=== PATIENT | female | born 1930 | race Caucasian/White ===

== ENCOUNTER 2016-08-18 14:02 | Emergency (ER) | payer OTHER ==
[~2016-08-18] VITALS: Ht 165.1 cm; Wt 76.1 kg
[~2016-08-18 14:02] MED LIST: ASPI1TAB48 PO; CHOL1CAP57 PO; FURO-85 PO; LISI-792 PO; POTA-74 PO; SIMV20TA5 PO; TPRSR/25 PO; WARF-285 PO
[2016-08-18 14:07] VITALS: BP 151/89; PULSE 90; TEMP 36.4; O2SAT 95; Ht 165.1 cm; Wt 76.1 kg
[2016-08-18] MEDS ORDERED: DIPH-437 PO (22:28)
[2016-08-18] MEDS ORDERED: PRLSR20 PO (22:28)
[2016-08-18] MEDS ORDERED: VITA10004 PO (22:28)
[2016-08-18] MEDS ORDERED: DOCU-94 PO (22:28)
== END 2016-08-18 17:00 | disposition left against medical advice (07) ==
LOC: C.EDB 14:03
DX: K59.00 Constipation, unspecified (principal)

== ENCOUNTER 2016-08-18 21:56 | Emergency (ER) | payer OTHER ==
[~2016-08-18] VITALS: Ht 165.1 cm; Wt 76.6 kg
[2016-08-18 22:01] VITALS: Ht 165.1 cm; Wt 76.6 kg
[2016-08-18] MEDS ORDERED: SODIUM CHLORIDE 0.9% 250ML 250 ML IV STA (22:26)
[2016-08-18] MEDS ORDERED: DOCU-94 PO (22:28)
[2016-08-18] MEDS ORDERED: DIPH-437 PO (22:28)
[2016-08-18] MEDS ORDERED: PRLSR20 PO (22:28)
[2016-08-18] MEDS ORDERED: VITA10004 PO (22:28)
[2016-08-18 22:29] VITALS: O2SAT 99
[2016-08-18] MEDS ORDERED: OPTIRAY 320 IV PRN (22:45)
[2016-08-18 22:49] LABS: COMPLETE YES; EOS % 1.1 %; HEMATOCRIT 37.2 % (37-47); IG% 0.2 %; LYMPH % 43.1 %; LYMPH ABS # 2.36 K/uL (1.2-3.4); MEAN CELL VOLUME 86.3 fL (80-100); MEAN CORPUSCULAR HEMOGLOBIN 29.5 pg (25-34); MEAN CORPUSCULAR HGB CONC 34.1 g/dl (32-36); MEAN PLATELET VOLUME 8.5 fL (7.4-10.4); MONO % 10.6 %; PLATELET COUNT 118 K/uL (130-400); RED BLOOD COUNT 4.31 M/uL (4.2-5.4); WHITE BLOOD COUNT 5.48 K/uL (4.8-10.8)
[2016-08-18 23:05] LABS: ALT/SGPT 24 U/L (12-78); AST/SGOT 17 U/L (15-37); BLOOD UREA NITROGEN 17 mg/dl (7-18); BUN/CREATININE RATIO 27.1 (10-20); CALCIUM 9.5 mg/dl (8.5-10.1); CARBON DIOXIDE 31 mmol/L (21-32); CHLORIDE 102 mmol/L (98-107); CREATININE 0.62 mg/dl (0.60-1.20); GLUCOSE 122 mg/dl (70-99); POTASSIUM 3.6 mmol/L (3.5-5.1); SODIUM 140 mmol/L (136-145)
[2016-08-18 23:09] LABS: ALKALINE PHOSPHATASE 94 U/L (45-117)
--- NOTE | 2016-08-18 23:18 | EMERGENCY ROOM VISIT NOTE ---
ED Visit Note First contact with patient: 22:15 I have seen and examined this patient with Trang Ansari and generally agree with the treatment plan as discussed. Problem List Medical Problems: (1) Atrial fibrillation Status: Chronic (2) Carcinoma of breast Status: Chronic (3) Deep venous thrombosis Status: Chronic (4) Hyperlipidemia Status: Chronic (5) Pulmonary embolism Status: Chronic (6) Varicose veins Status: Chronic Current/Historical Medications Scheduled Acetaminophen/Diphenhydramine (Tylenol Pm), 1 TAB PO HS Aspirin (Aspirin Low Dose), 81 MG PO DAILY Cholecalciferol (Vitamin D3), 1,000 INTER.UNIT PO DAILY Docusate Sodium (Colace), 1 CAP PO BID Lisinopril (Zestril), 20 MG PO DAILY Metoprolol Succinate (Metoprolol Succinate ER), 12.5 MG PO DAILY Simvastatin (Zocor), 20 MG PO HS Vitamin E (Vitamin E), 1,000 UNITS PO DAILY Warfarin Sodium (Warfarin Sodium), 3 MG PO DAILY Scheduled PRN Omeprazole (Prilosec), 20 MG PO DAILY PRN for Heartburn Allergies Coded Allergies: Amoxicillin (Verified Allergy, Intermediate, RASH; PURPLE SKIN, 08/18/16) Cephalexin (Verified Allergy, Mild, rash, 08/18/16) Amiodarone (Verified Allergy, Unknown, RASH, 08/18/16) Vital Signs Date Time Temp Pulse Resp B/P Pulse Ox O2 Delivery O2 Flow Rate FiO2 08/18/16 23:00 81 18 158/89 08/18/16 22:29 99 Room Air 08/18/16 22:29 99 Room Air 08/18/16 22:01 36.6 81 18 152/88 99 Room Air Laboratory Results 08/18/16 22:39 Red Blood Count 4.31, Mean Corpuscular Volume 86.3, Mean Corpuscular Hemoglobin 29.5, Mean Corpuscular Hemoglobin Concent 34.1, Mean Platelet Volume 8.5, Neutrophils (%) (Auto) 45.0, Lymphocytes (%) (Auto) 43.1, Monocytes (%) (Auto) 10.6, Eosinophils (%) (Auto) 1.1, Basophils (%) (Auto) 0.0, Neutrophils # (Auto ) 2.47, Lymphocytes # (Auto) 2.36, Monocytes # (Auto) 0.58, Eosinophils # (Auto ) 0.06, Basophils # (Auto) 0.00 08/18/16 22:39 Test 08/18/16 22:39 White Blood Count 5.48 K/uL (4.8-10.8) Red Blood Count 4.31 M/uL (4.2-5.4) Hemoglobin 12.7 g/dL (12.0-16.0) Hematocrit 37.2 % (37-47) Mean Corpuscular Volume 86.3 fL (80-100) Mean Corpuscular Hemoglobin 29.5 pg (25-34) Mean Corpuscular Hemoglobin Concent 34.1 g/dl (32-36) Platelet Count 118 K/uL (130-400) Mean Platelet Volume 8.5 fL (7.4-10.4) Neutrophils (%) (Auto) 45.0 % Lymphocytes (%) (Auto) 43.1 % Monocytes (%) (Auto) 10.6 % Eosinophils (%) (Auto) 1.1 % Basophils (%) (Auto) 0.0 % Neutrophils # (Auto) 2.47 K/uL (1.4-6.5) Lymphocytes # (Auto) 2.36 K/uL (1.2-3.4) Monocytes # (Auto) 0.58 K/uL (0.11-0.59) Eosinophils # (Auto) 0.06 K/uL (0-0.5) Basophils # (Auto) 0.00 K/uL (0-0.2) RDW Standard Deviation 51.1 fL (36.4-46.3) RDW Coefficient of Variation 16.0 % (11.5-14.5) Immature Granulocyte % (Auto) 0.2 % Immature Granulocyte # (Auto) 0.01 K/uL (0.00-0.02) Anion Gap 7.0 mmol/L (3-11) Est Creatinine Clear Calc Drug Dose 70.4 ml/min Estimated GFR () 96.6 Estimated GFR (Non- 83.4 BUN/Creatinine Ratio 27.1 (10-20) Calcium Level 9.5 mg/dl (8.5-10.1) Total Bilirubin 1.4 mg/dl (0.2-1) Direct Bilirubin 0.3 mg/dl (0-0.2) Aspartate Amino Transf (AST/SGOT) 17 U/L (15-37) Alanine Aminotransferase (ALT/SGPT) 24 U/L (12-78) Alkaline Phosphatase 94 U/L (45-117) Troponin I < 0.015 ng/ml (0-0.045) Total Protein 8.1 gm/dl (6.4-8.2) Albumin 3.3 gm/dl (3.4-5.0) Medications Administered Medications (Trade) Dose Ordered Sig/Sade Route Start Time Stop Time Status Last Admin Dose Admin Sodium Chloride (Nss 250ml) 250 ml @ 999 mls/hr Q16M STAT IV 08/18/16 22:26 08/18/16 22:41 DC 08/18/16 23:01 999 MLS/HR Departure Information Referrals Any Gregg, C.R.N.P (PCP) Patient Instructions My [facility]
[2016-08-18 23:43] LABS: PARTIAL THROMBOPLASTIN RATIO 1.6; PROTHROMBIN TIME (PATIENT) 22.3 SECONDS (9.0-12.0)
[2016-08-19] MEDS ORDERED: SOAP SUDS ENEMA PR STA (00:13)
[2016-08-19] MEDS ORDERED: MAGNESIUM CITRATE 296 ML/BTL PO ONE (00:15)
--- NOTE | 2016-08-19 00:53 | EMERGENCY ROOM VISIT NOTE ---
History First contact with patient: 22:15 Chief Complaint: CONSTIPATION Stated Complaint: CONSTIPATION Nursing Triage Summary: "we was here earlier, left before being seen by a doctor, we were tired waiting. we were here two hours. went home and tried the following: drank water,prune juice, MOM, hot water. went to [facility], unable to purchase a fleets enema; [facility] doesn't have them so bought liquid glycerin enema- on the box it said to go to the er if no results in an hour, so we came back" states last "real bm was sunday" passing liquid after enema this evening. used washroom after arrival to er, reports "just water comes out" History of Present Illness The patient is a 85 year old female who presents to the Emergency Room with complaints of constipation for the past 4 days. Patient tried prune juice with no relief of symptoms. No history of SBO. She has had prior abdominal surgeries per patient. Colonoscopy in the past was normal per patient. Patient complains of abdominal bloating. Patient denies chest pain, dyspnea, fever, chills, nausea, vomiting, diarrhea, back pain, urinary symptoms. She is tolerating by mouth fluids and food. Review of Systems See HPI for pertinent positives & negatives. A total of 10 systems reviewed and were otherwise negative. Past Medical/Surgical History Medical Problems: (1) Atrial fibrillation (2) Carcinoma of breast (3) Deep venous thrombosis (4) Hyperlipidemia (5) Pulmonary embolism (6) Varicose veins Family History FH: cancer FH: heart disease Hypertension Social History Smoking Status: Never Smoker Smokeless Tobacco Use: No Alcohol Use: none Drug Use: none Marital Status: Occupation Status: retired Current/Historical Medications Scheduled Acetaminophen/Diphenhydramine (Tylenol Pm), 1 TAB PO HS Aspirin (Aspirin Low Dose), 81 MG PO DAILY Cholecalciferol (Vitamin D3), 1,000 INTER.UNIT PO DAILY Docusate Sodium (Colace), 1 CAP PO BID Lisinopril (Zestril), 20 MG PO DAILY Metoprolol Succinate (Metoprolol Succinate ER), 12.5 MG PO DAILY Simvastatin (Zocor), 20 MG PO HS Vitamin E (Vitamin E), 1,000 UNITS PO DAILY Warfarin Sodium (Warfarin Sodium), 3 MG PO DAILY Scheduled PRN Omeprazole (Prilosec), 20 MG PO DAILY PRN for Heartburn Allergies Coded Allergies: Amoxicillin (Verified Allergy, Intermediate, RASH; PURPLE SKIN, 08/18/16) Cephalexin (Verified Allergy, Mild, rash, 08/18/16) Amiodarone (Verified Allergy, Unknown, RASH, 08/18/16) Physical Exam Vital Signs Date Time Temp Pulse Resp B/P Pulse Ox O2 Delivery O2 Flow Rate FiO2 08/18/16 23:00 81 18 158/89 08/18/16 22:29 99 Room Air 08/18/16 22:29 99 Room Air 08/18/16 22:01 36.6 81 18 152/88 99 Room Air Physical Exam VITALS: Vitals are noted on the nurse's note and reviewed by myself. Vital signs stable. GENERAL:pleasant female, in no acute distress, nondiaphoretic, well-developed well-nourished. SKIN: The skin was without rashes, erythema, edema, or bruising. There is no tenting of the skin. Capillary reflex less than 2 seconds. HEAD: Normocephalic atraumatic. EARS: External auditory canals clear, tympanic membranes pearly gutierrez without erythema or effusion bilaterally. EYES: Pupils equal round and reactive to light and accommodation. Conjunctivae without injection, sclerae without icterus. Extraocular movements intact. NOSE: Patent, turbinates without inflammation or discharge. MOUTH: Mucous membranes moist. Tonsils are not enlarged. Pharynx without erythema or exudate. Uvula midline. Airway patent. Tongue does not deviate. NECK: Supple without nuchal rigidity. No lymphadenopathy. No thyromegaly. Cervical spine is nontender. No JVD. HEART: Regular rate and rhythm LUNGS: Clear to auscultation bilaterally without wheezes, rales or rhonchi. No dullness to percussion. No retractions or accessory muscle use. ABDOMEN: Positive bowel sounds x 4. Normal tympanic percussion. Soft, diffusely tender to palpation, no CVA tenderness, without masses or organomegaly. Young sign negative. No guarding or rebound tenderness. MUSCULOSKELETAL: No muscle atrophy, erythema, or edema noted. NEURO: Patient was alert and oriented to person place and time. Normal sensation to light and sharp touch. No focal neurological deficits. Medical Decision & Procedures Laboratory Results 08/18/16 22:39 Red Blood Count 4.31, Mean Corpuscular Volume 86.3, Mean Corpuscular Hemoglobin 29.5, Mean Corpuscular Hemoglobin Concent 34.1, Mean Platelet Volume 8.5, Neutrophils (%) (Auto) 45.0, Lymphocytes (%) (Auto) 43.1, Monocytes (%) (Auto) 10.6, Eosinophils (%) (Auto) 1.1, Basophils (%) (Auto) 0.0, Neutrophils # (Auto ) 2.47, Lymphocytes # (Auto) 2.36, Monocytes # (Auto) 0.58, Eosinophils # (Auto ) 0.06, Basophils # (Auto) 0.00 08/18/16 22:39 Test 08/18/16 22:39 White Blood Count 5.48 K/uL (4.8-10.8) Red Blood Count 4.31 M/uL (4.2-5.4) Hemoglobin 12.7 g/dL (12.0-16.0) Hematocrit 37.2 % (37-47) Mean Corpuscular Volume 86.3 fL (80-100) Mean Corpuscular Hemoglobin 29.5 pg (25-34) Mean Corpuscular Hemoglobin Concent 34.1 g/dl (32-36) Platelet Count 118 K/uL (130-400) Mean Platelet Volume 8.5 fL (7.4-10.4) Neutrophils (%) (Auto) 45.0 % Lymphocytes (%) (Auto) 43.1 % Monocytes (%) (Auto) 10.6 % Eosinophils (%) (Auto) 1.1 % Basophils (%) (Auto) 0.0 % Neutrophils # (Auto) 2.47 K/uL (1.4-6.5) Lymphocytes # (Auto) 2.36 K/uL (1.2-3.4) Monocytes # (Auto) 0.58 K/uL (0.11-0.59) Eosinophils # (Auto) 0.06 K/uL (0-0.5) Basophils # (Auto) 0.00 K/uL (0-0.2) RDW Standard Deviation 51.1 fL (36.4-46.3) RDW Coefficient of Variation 16.0 % (11.5-14.5) Immature Granulocyte % (Auto) 0.2 % Immature Granulocyte # (Auto) 0.01 K/uL (0.00-0.02) Prothrombin Time 22.3 SECONDS (9.0-12.0) Prothromb Time International Ratio 2.0 (0.9-1.1) Activated Partial Thromboplast Time 41.3 SECONDS (21.0-31.0) Partial Thromboplastin Ratio 1.6 Anion Gap 7.0 mmol/L (3-11) Est Creatinine Clear Calc Drug Dose 70.4 ml/min Estimated GFR () 96.6 Estimated GFR (Non- 83.4 BUN/Creatinine Ratio 27.1 (10-20) Calcium Level 9.5 mg/dl (8.5-10.1) Total Bilirubin 1.4 mg/dl (0.2-1) Direct Bilirubin 0.3 mg/dl (0-0.2) Aspartate Amino Transf (AST/SGOT) 17 U/L (15-37) Alanine Aminotransferase (ALT/SGPT) 24 U/L (12-78) Alkaline Phosphatase 94 U/L (45-117) Troponin I < 0.015 ng/ml (0-0.045) Total Protein 8.1 gm/dl (6.4-8.2) Albumin 3.3 gm/dl (3.4-5.0) Medications Administered Medications (Trade) Dose Ordered Sig/Sade Route Start Time Stop Time Status Last Admin Dose Admin Sodium Chloride (Nss 250ml) 250 ml @ 999 mls/hr Q16M STAT IV 08/18/16 22:26 08/18/16 22:41 DC 08/18/16 23:01 999 MLS/HR ED Course Prior records/ancillary studies reviewed. Triage Nursing notes reviewed. Additional history obtained from family. The patient's history was concerning for abdominal pain. Differential diagnosis: Etiologies such as appendicitis, diverticulitis, PUD, biliary pathology, UTI, pancreatitis, obstruction, mesenteric ischemia, aortic pathology, infections, inflammatory bowel disease, renal colic, as well as others were entertained. Physical examination findings: As above. ER treatment provided: NSS On reassessment the patient felt better. Diagnostics interpreted by me: ECG: Normal sinus, normal intervals, left axis deviation, no acute ST-T wave changes. Impression normal sinus rhythm with ST deviation interpreted by myself The labs revealed no worrisome leukocytosis or electrolyte abnormality Imaging studies: CT ABDOMEN & PELVIS: Comparison 09/23/12 Diverticulosis. There are inflammatory changes at the sigmoid colon compatible with diverticulitis. No bowel obstruction. Liquid stool contents. The rectum has an irregular thickened appearance. Some of this may be related to underdistention. Correlate for proctitis. If concern for mass, consider direct visualization or other follow-up, as clinically indicated. Suspected atelectasis. Borderline splenomegaly with spleen measuring about 13 cm. Indeterminate left adrenal nodule. Present on prior. Low-density renal lesions. Some too small to characterize. Others have density slightly lower than that of simple cyst though this could be artifactual. Right groin hernia containing non obstructed small bowel. Clamp over IVC and other incidental findings. Radiologist: Kip Ferguson M.D. Exam and history seem consistent with constipation. Patient had no rectal pain on exam. I Do not believe she has proctitis. She is given enema and requested to leave. She is given magnesium citrate to go. She is advised to take this when she gets up in the morning and to follow-up with her GI doctor or family care doctor this week or here in the ER sooner for abdominal pain, fevers, chest pain, worsening signs or symptoms or as needed. Patient felt better and requested to leave. I felt this is reasonable. By the evaluation outlined above emergent etiologies such as appendicitis, diverticulitis, PUD, biliary pathology, UTI, pancreatitis, obstruction, mesenteric ischemia, aortic pathology, infections, inflammatory bowel disease, renal colic, as well as others were deemed relatively unlikely. The pt informed about the findings as listed above. All questions were answered and pleased with the treatment. Return instructions were outlined and the patient was discharged in stable condition. Outpatient prescription management: Magnesium citrate Referral: The patient was referred back to their primary care physician for follow-up in 2 to 3 days for a recheck of the current condition. case reviewed with my Attending Medical Decision as above Impression Primary Impression: Constipation Additional Impression: Generalized abdominal discomfort Departure Information Dispostion Home / Self-Care Condition GOOD Referrals Any Gregg, C.R.N.P (PCP) Patient Instructions My [facility] Additional Instructions Magnesium citrate: Drink half the bottle when you get up, if you do not have a bowel movement within 6 hours then drink the rest. Stay near a toilet Acetaminophen(Tylenol) may be used for fever or pain. Use 1000mg every six hours as needed. Avoid using more than 3000mg in a 24 hour period. Rest and drink plenty of fluids as tolerated. Continue current medications. Avoid strenuous activities and anything that worsens your pain. Resume normal activities once your symptoms resolve. Return to the ER immediately for worsening or persistent abdominal pain, vomiting, fevers, chest pains, difficulty breathing, worsening of your condition , or as needed. Follow up with your primary physician or gastroenterology for your constipation in 2-3 days for a recheck of your current condition. Problem Qualifiers Primary Impression: Constipation Constipation type: unspecified constipation type Qualified Codes: K59.00 - Constipation, unspecified
[2016-08-19 01:07] VITALS: BP 158/89; PULSE 81; TEMP 36.6; O2SAT 99
--- NOTE | 2016-08-19 07:30 | DIAGNOSTIC IMAGING REPORT ---
ABDOMEN AND PELVIS CT WITH IV CONTRAST CT DOSE: 584.39 mGy.cm HISTORY: Generalized abdominal pain. TECHNIQUE: Multiaxial CT images of the abdomen and pelvis were performed following the use of intravenous contrast. COMPARISON STUDY: Abdomen and pelvis CT 09/23/2012. FINDINGS: Mild dependent changes seen within the lung bases. The liver, gallbladder, right adrenal gland, and pancreas are unremarkable. No hydronephrosis. Bilateral renal hypodense lesions which favor cysts. An IVC clamp is again noted. 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 The spleen is mildly enlarged. This remains unchanged. Fluid-filled colon. Normal bladder. Right inguinal hernia containing a short segment of small bowel. Colonic diverticulosis. Mild pericolonic fat stranding at the mid sigmoid colon consistent with acute diverticulitis. No perforation or abscess at this time. Hysterectomy. Normal bladder. Stable left adrenal nodule. IMPRESSION: 1. Acute sigmoid diverticulitis. No perforation or abscess at this time. 2. Stable splenomegaly. 3. Stable left adrenal gland nodule. 4. 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 5. Fluid-filled colon. 6. Right inguinal hernia containing a loop of small bowel. No evidence for bowel obstruction. Electronically signed by: Harsh Mendez M.D. 08/19/2016 7:29 AM Dictated Date/Time: 08/19/2016 7:23 AM
== END 2016-08-19 01:08 | disposition home or self-care (01) ==
LOC: C.EDB 21:57 → C.EDA 08-19 01:08
DX: K59.00 Constipation, unspecified (principal); R10.84 Generalized abdominal pain; I48.91 Unspecified atrial fibrillation; E78.5 Hyperlipidemia, unspecified; Z86.711 Personal history of pulmonary embolism; Z86.718 Personal history of other venous thrombosis and embolism; Z85.3 Personal history of malignant neoplasm of breast; Z79.82 Long term (current) use of aspirin; Z79.01 Long term (current) use of anticoagulants; Z79.899 Other long term (current) drug therapy; Z88.1 Allergy status to other antibiotic agents; Z88.8 Allergy status to other drugs, medicaments and biological substances; Z80.9 Family history of malignant neoplasm, unspecified; Z82.49 Family history of ischemic heart disease and other diseases of the circulatory system

== ENCOUNTER 2016-09-25 19:38 | Inpatient (IN) | payer OTHER ==
[~2016-09-25] VITALS: Ht 160 cm; Wt 75.0 kg
[~2016-09-25 19:38] MED LIST changes: +DIPH-437 PO; +DOCU-94 PO; -FURO-85 PO; -POTA-74 PO; +PRLSR20 PO; +VITA10004 PO
--- NOTE | 2016-09-25 20:37 | DIAGNOSTIC IMAGING REPORT ---
LEFT KNEE 1 OR 2 VIEWS ROUTINE CLINICAL HISTORY: left eval for fx COMPARISON: None. DISCUSSION: Moderate degenerative change throughout. Chondrocalcinosis. No acute bony abnormality. There is no evidence for soft tissue swelling. IMPRESSION: Degenerative change. No acute process. Electronically signed by: Reji Matthews M.D. 09/25/2016 8:36 PM Dictated Date/Time: 09/25/2016 8:35 PM
[2016-09-25 20:59] LABS: BASO % 0.2 %; BASO ABS # 0.01 K/uL (0-0.2); COMPLETE YES; EOS % 0.9 %; HEMATOCRIT 38.3 % (37-47); IG% 0.2 %; LYMPH % 28.9 %; LYMPH ABS # 1.27 K/uL (1.2-3.4); MEAN CELL VOLUME 87.6 fL (80-100); MEAN CORPUSCULAR HEMOGLOBIN 28.1 pg (25-34); MEAN CORPUSCULAR HGB CONC 32.1 g/dl (32-36); MEAN PLATELET VOLUME 8.1 fL (7.4-10.4); MONO % 9.5 %; NEUT % 60.3 %; PLATELET COUNT 125 K/uL (130-400); RED BLOOD COUNT 4.37 M/uL (4.2-5.4)
[2016-09-25 21:12] LABS: INR 1.9 (0.9-1.1); PARTIAL THROMBOPLASTIN RATIO 1.3; PROTHROMBIN TIME (PATIENT) 21.4 SECONDS (9.0-12.0)
[2016-09-25 21:21] LABS: CREATININE 0.7 mg/dl (0.60-1.20); POTASSIUM 3.6 mmol/L (3.5-5.1)
--- NOTE | 2016-09-25 21:21 | DIAGNOSTIC IMAGING REPORT ---
HEAD CT NONCONTRAST CT DOSE: 1460.09 mGy.cm HISTORY: Trauma. Pain. eval for bleed TECHNIQUE: Multiaxial CT images of the head were performed without the use of intravenous contrast. Comparison: 09/11/2013 Findings: Postoperative changes involving the sinuses. Antral window placement is noted. The mastoid cells are considered clear. Left suprasellar calcification and a calcific density and unchanged from the prior exam and considered chronic. Scattered areas of atrophy and encephalomalacia also chronic. No acute intracranial abnormality. The calvarium and skull base are intact. The ventricles and sulci are within normal limits. There is no mass, hematoma, midline shift, or acute infarct. Impression: Chronic and postoperative change. No acute process. Electronically signed by: Reji Matthews M.D. 09/25/2016 9:19 PM Dictated Date/Time: 09/25/2016 9:16 PM
--- NOTE | 2016-09-25 21:29 | DIAGNOSTIC IMAGING REPORT ---
CERVICAL SPINE CT CT DOSE: HISTORY: Trauma eval for fx TECHNIQUE: Multiaxial CT images of the cervical spine were performed and reformatted in the sagittal and coronal plane without the use of contrast. COMPARISON: None. FINDINGS: No fractures. No subluxation. Prevertebral soft tissues and the C1-C2 interval are intact. No pneumothorax. Moderate degenerative change throughout IMPRESSION: No fractures within the cervical spine. Moderate degenerative change. Electronically signed by: Reji Matthews M.D. 09/25/2016 9:27 PM Dictated Date/Time: 09/25/2016 9:24 PM
--- NOTE | 2016-09-25 21:34 | DIAGNOSTIC IMAGING REPORT ---
MAXILLOFACIAL CT CT DOSE: HISTORY: Trauma eval for fx TECHNIQUE: Multiaxial CT images of the maxillofacial region were performed and reformatted in the coronal plane without the use of contrast. COMPARISON: None. FINDINGS: Moderate prefrontal extracranial soft tissue edematous change. Nondisplaced fracture of the nasal bones. Prior operative changes to the maxillary sinuses with prior antral window placement. The orbital margins appear to be intact. Sacrum back arches are intact. Structures of the mandible and maxilla are unremarkable. Orbital floors are intact. Orbital margins showed no evidence for disruption. There has been a prior ethmoidectomy. IMPRESSION: Fracture of the nasal bones considered nondisplaced. Postoperative changes to the sinuses. No additional acute bony abnormality. Electronically signed by: Reji Matthews M.D. 09/25/2016 9:32 PM Dictated Date/Time: 09/25/2016 9:29 PM
--- NOTE | 2016-09-25 21:45 | DIAGNOSTIC IMAGING REPORT ---
CHEST CT WITHOUT CONTRAST CT DOSE: HISTORY: Pain. Trauma. eval for left upper rib/fracture/ptx TECHNIQUE: Multiaxial CT images of the chest were performed without contrast. COMPARISON: 06/30/2007 FINDINGS: No acute bony abnormalities identified. Mild bibasilar the benefit atelectatic change. Mid and upper lungs are entirely clear. Generalized atherosclerotic change and ectasia thoracic aorta. Several nonspecific mediastinal and hilar nodes unchanged in the prior exam. Mild left anterior chest wall contusion. This appears to be confined to the subcutaneous fat. Degenerative change of all remaining osseous structures. Cortical fractures left sixth, seventh, and eighth ribs. No evidence pneumothorax. Limited evaluation the upper abdomen is unremarkable. IMPRESSION: 1. Cortical fractures left sixth, seventh, and eighth ribs. 2. Bibasilar atelectasis. 3. No evidence pneumothorax. 4. Moderate left anterolateral chest wall contusion confined to the subcutaneous fat. Electronically signed by: Reji Matthews M.D. 09/25/2016 9:44 PM Dictated Date/Time: 09/25/2016 9:39 PM
[2016-09-25] MEDS ORDERED: ONDANSETRON INJ 2 MG/ML 2 ML VIAL IV STA (21:58)
[2016-09-25 22:00] LABS: CALCIUM 9.3 mg/dl (8.5-10.1)
[2016-09-25] MEDS ORDERED: MoRPHine SULFATE 2 MG/ML CARP IV STA (22:14)
[2016-09-26] MEDS ORDERED: PANTOprazole SOD 40 MG TAB PO PRN (00:30)
[2016-09-26] MEDS ORDERED: OXYCODONE/ACETAMINOPHEN 7.5-325 TAB PO PRN (00:30)
[2016-09-26] MEDS ORDERED: ALUMINUM/MAGNESIUM/SIMETH (MAALOX MAX) 30 ML UDC PO PRN (00:30)
[2016-09-26] MEDS ORDERED: MoRPHine SULFATE 2 MG/ML CARP IV PRN (00:30)
[2016-09-26] MEDS ORDERED: MAGNESIUM HYDROXIDE SUSP 30 ML UDC PO PRN (00:30)
[2016-09-26] MEDS ORDERED: ONDANSETRON INJ 2 MG/ML 2 ML VIAL IV PRN (00:30)
[2016-09-26] MEDS ORDERED: POLYETHYLENE (MIRALAX) 17 GM PACK PO PRN (00:30)
[2016-09-26] MEDS ORDERED: ACETAMINOPHEN 325 MG TAB PO PRN (00:30)
--- NOTE | 2016-09-26 00:37 | History and Physical ---
History & Physical Date & Time of Service: September 26, 2016 at 00:32 Chief Complaint: Fall, Left Side And Face Primary Care Physician: Any Gregg C.R.N.P History of Present Illness Source: patient 86 y/o F Hx HTN, HPL, DVT/PE - on Coumadin. Pt presents following a mechanical fall where she suffered trauma to her L chest and face. Initial imaging reveals 3 fractured ribs and a nasal bone fracture. She is having difficulty with mobility at present and may need placement in acute rehab. She denies CP, SOB, light-headedness or palpitations prior to falling. Past Medical/Surgical History Medical Problems: (1) Atrial fibrillation Status: Chronic (2) Carcinoma of breast Status: Chronic (3) Deep venous thrombosis Status: Chronic (4) Hyperlipidemia Status: Chronic (5) Pulmonary embolism Status: Chronic (6) Varicose veins Status: Chronic Family History FH: cancer FH: heart disease Hypertension Social History Smoking Status: Never Smoker Drug Use: none Marital Status: Housing status: lives with family Occupational Status: retired Immunizations History of Influenza Vaccine: Yes Influenza Vaccine Date: Mar 07, 2011 History of Tetanus Vaccine?: No History of Pneumococcal: Yes Pneumococcal Date: Feb 20, 2008 History of Hepatitis B Vaccine: No Multi-Drug Resistant Organisms History of MDRO: No Allergies Coded Allergies: Amoxicillin (Verified Allergy, Intermediate, RASH; PURPLE SKIN, 09/25/16) Cephalexin (Verified Allergy, Mild, rash, 09/25/16) Amiodarone (Verified Allergy, Unknown, RASH, 09/25/16) Home Medications Scheduled Acetaminophen/Diphenhydramine (Tylenol Pm), 1 TAB PO HS Aspirin (Aspirin Low Dose), 81 MG PO DAILY Cholecalciferol (Vitamin D3), 1,000 INTER.UNIT PO DAILY Docusate Sodium (Colace), 1 CAP PO BID Lisinopril (Zestril), 20 MG PO DAILY Metoprolol Succinate (Metoprolol Succinate ER), 12.5 MG PO DAILY Simvastatin (Zocor), 20 MG PO HS Vitamin E (Vitamin E), 1,000 UNITS PO DAILY Warfarin Sodium (Warfarin Sodium), 3 MG PO DAILY Scheduled PRN Omeprazole (Prilosec), 20 MG PO DAILY PRN for Heartburn Review of Systems Constitutional: No chills, No fever, No sweats Eyes: No eye pain, No worsening of vision ENT: No hearing loss, No nasal symptoms, No unusual epistaxis Respiratory: No cough, No sputum, No wheezing Cardiovascular: No PND, No chest pain, No orthopnea Abdomen: No nausea, No pain Musculoskeletal: No joint pain, No muscle pain Genitourinary - Female: No dysuria Neurologic: No memory loss, No paralysis, No weakness Psychiatric: No depression symptoms Endocrine: No fatigue Hematologic / Lymphatic: No abnormal bleeding/bruising Integumentary: No rash Allergic / Immunologic: No environmental allergies Physical Exam Vital Signs Date Time Temp Pulse Resp B/P Pulse Ox O2 Delivery O2 Flow Rate FiO2 09/25/16 22:02 77 16 177/96 92 Room Air 09/25/16 21:20 80 16 174/106 93 Room Air 09/25/16 19:46 36.7 94 18 160/100 96 Room Air General Appearance: WD/WN, no apparent distress Head: + pertinent finding (Bruising over bridge of nose and below L eye) Eyes: normal inspection ENT: normal ENT inspection, pharynx normal Neck: supple, no JVD Respiratory/Chest: lungs clear, normal breath sounds, no respiratory distress, no accessory muscle use, + pertinent finding (Chest wass is deepak at L) Abdomen/GI: normal bowel sounds, non tender, soft Back: normal inspection, no CVA tenderness, no muscle spasm Extremities/Musculoskelatal: normal inspection, no calf tenderness, normal capillary refill, no pedal edema Neurologic/Psych: light bulb tester II-XII nml as tested, no motor/sensory deficits, alert, normal mood/affect, normal reflexes, oriented x 3 Skin: warm/dry, no rash, + pertinent finding (Bruising over bridge of nose and below L eye) Diagnostics Laboratory Results Results Past 24 Hours Test 09/25/16 20:50 Range/Units White Blood Count 4.40 4.8-10.8 K/uL Red Blood Count 4.37 4.2-5.4 M/uL Hemoglobin 12.3 12.0-16.0 g/dL Hematocrit 38.3 37-47 % Mean Corpuscular Volume 87.6 80-100 fL Mean Corpuscular Hemoglobin 28.1 25-34 pg Mean Corpuscular Hemoglobin Concent 32.1 32-36 g/dl Platelet Count 125 130-400 K/uL Mean Platelet Volume 8.1 7.4-10.4 fL Neutrophils (%) (Auto) 60.3 % Lymphocytes (%) (Auto) 28.9 % Monocytes (%) (Auto) 9.5 % Eosinophils (%) (Auto) 0.9 % Basophils (%) (Auto) 0.2 % Neutrophils # (Auto) 2.65 1.4-6.5 K/uL Lymphocytes # (Auto) 1.27 1.2-3.4 K/uL Monocytes # (Auto) 0.42 0.11-0.59 K/uL Eosinophils # (Auto) 0.04 0-0.5 K/uL Basophils # (Auto) 0.01 0-0.2 K/uL RDW Standard Deviation 51.2 36.4-46.3 fL RDW Coefficient of Variation 15.9 11.5-14.5 % Immature Granulocyte % (Auto) 0.2 % Immature Granulocyte # (Auto) 0.01 0.00-0.02 K/uL Prothrombin Time 21.4 9.0-12.0 SECONDS Prothromb Time International Ratio 1.9 0.9-1.1 Activated Partial Thromboplast Time 33.9 21.0-31.0 SECONDS Partial Thromboplastin Ratio 1.3 Sodium Level 139 136-145 mmol/L Potassium Level 3.6 3.5-5.1 mmol/L Chloride Level 105 98-107 mmol/L Carbon Dioxide Level 28 21-32 mmol/L Anion Gap 6.0 3-11 mmol/L Blood Urea Nitrogen 17 7-18 mg/dl Creatinine 0.70 0.60-1.20 mg/dl Est Creatinine Clear Calc Drug Dose 58.0 ml/min Estimated GFR () 92.2 Estimated GFR (Non- 79.6 BUN/Creatinine Ratio 24.0 10-20 Random Glucose 122 70-99 mg/dl Calcium Level 9.3 8.5-10.1 mg/dl Diagnostic Radiology Maxillofacial CT: Fracture of the nasal bones considered nondisplaced. Postoperative changes to the sinuses. No additional acute bony abnormality. CT chest: Cortical fractures left sixth, seventh, and eighth ribs. Bibasilar atelectasis. Impression Assessment and Plan 86 y/o F Hx HTN, HPL, DVT/PE - on Coumadin. Pt presents following a mechanical fall where she suffered trauma to her L chest and face. Initial imaging reveals 3 fractured ribs and a nasal bone fracture. She denies CP, SOB, light- headedness or palpitations prior to falling. 1) Fall - rib and nasal bone fractures. She is having difficulty with mobility and may need placement in acute rehab. We will request a PT and OT eval. A follow-up CT head is ordered considering her fracture and therapeutic INR. 2) DVT/PE - chronic anticoagulation with Coumadin - INR is therapeutic - Coumadin will be held for 1- 2 days. 3) HTN - cont metoprolol - ASA held pending AM reassessment 4) Diastolic CHF is listed in pt record - she is euvolemic - we will continue her B ambar and ZULAY. Full code - SCDs - Coumadin Total time for this admit including review of labs/meds/imaging - discussion with pt and ER attending 37 min Level of Care Med/Surg Resuscitation Status FULL RESUSCITATION VTE Prophylaxis VTE Risk Assessment Done? Y/N: Yes Risk Level: Moderate Given or contraindicated: Warfarin (Coumadin)
--- NOTE | 2016-09-26 00:58 | EMERGENCY ROOM VISIT NOTE ---
History Report prepared by Devon: Aurora Torres Under the Supervision of: Dr. Dar Alvarado M.D. First contact with patient: 19:56 Chief Complaint: FALL Stated Complaint: FALL, LEFT SIDE AND FACE History of Present Illness The patient is a 86 year old female who presents to the Emergency Room with complaints of left sided rib pain starting a few minutes prior to arrival. The patient tripped over the doorway as she was entering her house and fell onto her face and chest. She states that her toes got caught on the step. Since then, she has been left rib pain. She has worsening pain with deep breathing. She also complains of nose pain and left knee pain. She denies any loss of consciousness, fevers, headache, neck pain, shortness of breath, nausea, vomiting, abdominal pain, urinary symptoms, focal numbness or weakness, or any other complaints. She is on Coumadin for a history of DVT and A-Fib. Source of History: patient Onset: a few minutes prior to arrival Position: other (left sided rib pain) Symptom Intensity: moderate Quality: sharp Modifying Factors (Worsening): breathing, movement Associated Symptoms: No LOC, No SOB, No abdominal pain, No fevers, No headache, No nausea, No neck pain, No numbness, No urinary symptoms, No vomiting , No weakness Review of Systems See HPI for pertinent positives & negatives. A total of 10 systems reviewed and were otherwise negative. Past Medical & Surgical Medical Problems: (1) Atrial fibrillation (2) Carcinoma of breast (3) Deep venous thrombosis (4) Hyperlipidemia (5) Nasal bone fracture (6) Pulmonary embolism (7) Varicose veins Family History FH: cancer FH: heart disease Hypertension Social History Smoking Status: Never Smoker Alcohol Use: none Drug Use: none Marital Status: Occupation Status: retired Current/Historical Medications Scheduled Acetaminophen/Diphenhydramine (Tylenol Pm), 1 TAB PO HS Aspirin (Aspirin Low Dose), 81 MG PO DAILY Cholecalciferol (Vitamin D3), 1,000 INTER.UNIT PO DAILY Docusate Sodium (Colace), 1 CAP PO BID Lisinopril (Zestril), 20 MG PO DAILY Metoprolol Succinate (Metoprolol Succinate ER), 12.5 MG PO DAILY Simvastatin (Zocor), 20 MG PO HS Vitamin E (Vitamin E), 1,000 UNITS PO DAILY Warfarin Sodium (Warfarin Sodium), 3 MG PO DAILY Scheduled PRN Omeprazole (Prilosec), 20 MG PO DAILY PRN for Heartburn Allergies Coded Allergies: Amoxicillin (Verified Allergy, Intermediate, RASH; PURPLE SKIN, 09/25/16) Cephalexin (Verified Allergy, Mild, rash, 09/25/16) Amiodarone (Verified Allergy, Unknown, RASH, 09/25/16) Physical Exam Vital Signs Date Time Temp Pulse Resp B/P Pulse Ox O2 Delivery O2 Flow Rate FiO2 09/25/16 22:02 77 16 177/96 92 Room Air 09/25/16 21:20 80 16 174/106 93 Room Air 09/25/16 19:46 36.7 94 18 160/100 96 Room Air Physical Exam Constitutional: Vital signs reviewed. Eyes: Pupils are equal round reactive to light. Conjunctiva are noninjected. HENT: Soft tissue swelling to the forehead. Pharynx is clear without erythema or exudate. Mucous membranes are moist. Tenderness to the nasal bridge with abrasion, no maxillary tenderness. Respiratory: Clear to auscultation bilaterally. Breath sounds are equal bilaterally. Cardiovascular: Regular rate and rhythm. No rubs or gallops. GI: Soft, nondistended and nontender. Bowel sounds are present. Musculoskeletal: No peripheral edema. No midline tenderness to the cervical spine. No tenderness to the upper extremities bilaterally. Tenderness and bruising to the left upper ribs anteriorly without crepitus or flail segment. Tenderness to the posterior medial left knee with soft tissue swelling and bruising. no joint laxity. No hip tenderness. Integumentary: No cyanosis. Neurologic: The patient is awake and alert. Cranial nerves II-XII are intact. Motor is 5 out of 5 all extremities. Sensation is intact to light touch all extremities. Normal speech. Psychiatric: Normal affect. Medical Decision & Procedures ER Provider Diagnostic Interpretation: X-ray results as stated below per interpretation by me and the radiologist: LEFT KNEE 1 OR 2 VIEWS ROUTINE CLINICAL HISTORY: left eval for fx COMPARISON: None. DISCUSSION: Moderate degenerative change throughout. Chondrocalcinosis. No acute bony abnormality. There is no evidence for soft tissue swelling. IMPRESSION: Degenerative change. No acute process. Electronically signed by: Reji Matthews M.D. 09/25/2016 8:36 PM Dictated Date/Time: 09/25/2016 8:[address] results as stated below per my review and radiologist interpretation. CERVICAL SPINE CT CT DOSE: HISTORY: Trauma eval for fx TECHNIQUE: Multiaxial CT images of the cervical spine were performed and reformatted in the sagittal and coronal plane without the use of contrast. COMPARISON: None. FINDINGS: No fractures. No subluxation. Prevertebral soft tissues and the C1-C2 interval are intact. No pneumothorax. Moderate degenerative change throughout IMPRESSION: No fractures within the cervical spine. Moderate degenerative change. Electronically signed by: Reji Matthews M.D. 09/25/2016 9:27 PM Dictated Date/Time: 09/25/2016 9:[address] WITHOUT CONTRAST CT DOSE: HISTORY: Pain. Trauma. eval for left upper rib/fracture/ptx TECHNIQUE: Multiaxial CT images of the chest were performed without contrast. COMPARISON: 06/30/2007 FINDINGS: No acute bony abnormalities identified. Mild bibasilar the benefit atelectatic change. Mid and upper lungs are entirely clear. Generalized atherosclerotic change and ectasia thoracic aorta. Several nonspecific mediastinal and hilar nodes unchanged in the prior exam. Mild left anterior chest wall contusion. This appears to be confined to the subcutaneous fat. Degenerative change of all remaining osseous structures. Cortical fractures left sixth, seventh, and eighth ribs. No evidence pneumothorax. Limited evaluation the upper abdomen is unremarkable. IMPRESSION: 1. Cortical fractures left sixth, seventh, and eighth ribs. 2. Bibasilar atelectasis. 3. No evidence pneumothorax. 4. Moderate left anterolateral chest wall contusion confined to the subcutaneous fat. Electronically signed by: Reji Matthews M.D. 09/25/2016 9:44 PM Dictated Date/Time: 09/25/2016 9:[address] NON[address]AST CT DOSE: 1460.09 mGy.cm HISTORY: Trauma. Pain. eval for bleed TECHNIQUE: Multiaxial CT images of the head were performed without the use of intravenous contrast. Comparison: 09/11/2013 Findings: Postoperative changes involving the sinuses. Antral window placement is noted. The mastoid cells are considered clear. Left suprasellar calcification and a calcific density and unchanged from the prior exam and considered chronic. Scattered areas of atrophy and encephalomalacia also chronic. No acute intracranial abnormality. The calvarium and skull base are intact. The ventricles and sulci are within normal limits. There is no mass, hematoma, midline shift, or acute infarct. Impression: Chronic and postoperative change. No acute process. Electronically signed by: Reji Matthews M.D. 09/25/2016 9:19 PM Dictated Date/Time: 09/25/2016 9:[address] DOSE: HISTORY: Trauma eval for fx TECHNIQUE: Multiaxial CT images of the maxillofacial region were performed and reformatted in the coronal plane without the use of contrast. COMPARISON: None. FINDINGS: Moderate prefrontal extracranial soft tissue edematous change. Nondisplaced fracture of the nasal bones. Prior operative changes to the maxillary sinuses with prior antral window placement. The orbital margins appear to be intact. Sacrum back arches are intact. Structures of the mandible and maxilla are unremarkable. Orbital floors are intact. Orbital margins showed no evidence for disruption. There has been a prior ethmoidectomy. IMPRESSION: Fracture of the nasal bones considered nondisplaced. Postoperative changes to the sinuses. No additional acute bony abnormality. Electronically signed by: Reji Matthews M.D. 09/25/2016 9:32 PM Dictated Date/Time: 09/25/2016 9:29 PM Laboratory Results 09/25/16 20:50 Red Blood Count 4.37, Mean Corpuscular Volume 87.6, Mean Corpuscular Hemoglobin 28.1, Mean Corpuscular Hemoglobin Concent 32.1, Mean Platelet Volume 8.1, Neutrophils (%) (Auto) 60.3, Lymphocytes (%) (Auto) 28.9, Monocytes (%) (Auto) 9.5, Eosinophils (%) (Auto) 0.9, Basophils (%) (Auto) 0.2, Neutrophils # (Auto) 2.65, Lymphocytes # (Auto) 1.27, Monocytes # (Auto) 0.42, Eosinophils # (Auto) 0.04, Basophils # (Auto) 0.01 09/25/16 20:50 Test 09/25/16 20:50 White Blood Count 4.40 K/uL (4.8-10.8) Red Blood Count 4.37 M/uL (4.2-5.4) Hemoglobin 12.3 g/dL (12.0-16.0) Hematocrit 38.3 % (37-47) Mean Corpuscular Volume 87.6 fL (80-100) Mean Corpuscular Hemoglobin 28.1 pg (25-34) Mean Corpuscular Hemoglobin Concent 32.1 g/dl (32-36) Platelet Count 125 K/uL (130-400) Mean Platelet Volume 8.1 fL (7.4-10.4) Neutrophils (%) (Auto) 60.3 % Lymphocytes (%) (Auto) 28.9 % Monocytes (%) (Auto) 9.5 % Eosinophils (%) (Auto) 0.9 % Basophils (%) (Auto) 0.2 % Neutrophils # (Auto) 2.65 K/uL (1.4-6.5) Lymphocytes # (Auto) 1.27 K/uL (1.2-3.4) Monocytes # (Auto) 0.42 K/uL (0.11-0.59) Eosinophils # (Auto) 0.04 K/uL (0-0.5) Basophils # (Auto) 0.01 K/uL (0-0.2) RDW Standard Deviation 51.2 fL (36.4-46.3) RDW Coefficient of Variation 15.9 % (11.5-14.5) Immature Granulocyte % (Auto) 0.2 % Immature Granulocyte # (Auto) 0.01 K/uL (0.00-0.02) Prothrombin Time 21.4 SECONDS (9.0-12.0) Prothromb Time International Ratio 1.9 (0.9-1.1) Activated Partial Thromboplast Time 33.9 SECONDS (21.0-31.0) Partial Thromboplastin Ratio 1.3 Anion Gap 6.0 mmol/L (3-11) Est Creatinine Clear Calc Drug Dose 58.0 ml/min Estimated GFR () 92.2 Estimated GFR (Non- 79.6 BUN/Creatinine Ratio 24.0 (10-20) Calcium Level 9.3 mg/dl (8.5-10.1) Laboratory results as reviewed by me. Medications Administered Medications (Trade) Dose Ordered Sig/Sade Route Start Time Stop Time Status Last Admin Dose Admin Ondansetron HCl (Zofran Inj) 4 mg NOW STAT IV 09/25/16 21:58 09/25/16 21:59 DC 09/25/16 22:02 4 MG Morphine Sulfate (MoRPHine SULFATE INJ) 2 mg NOW STAT IV 09/25/16 22:14 5/22/17 22:15 DC 09/25/16 22:24 2 MG ED Course 1955: The patient was evaluated in room C03. A complete history and physical exam was performed. 2157: Zofran Inj 4 mg IV 2206: I discussed the radiology and lab findings with the patient and her daughter. Her daughter does not feel comfortable sending her home due to her injuries and pain. They are requesting hospitalization. The patient currently denies any headaches. She is complaining of nausea, nose pain, and rib pain. 2213: Morphine Sulfate 2 mg IV 2216: I discussed the patient's case with Dr. Gómez, from [facility]. The patient will be evaluated for further management and care. Medical Decision This is an 86-year-old female presents with injuries after a fall. Differential diagnosis includes intracranial hemorrhage, skull fracture, facial fracture, rib fracture, pneumothorax, hemothorax. I did perform a limited focused review of portions of the patient's old chart on the electronic medical record. The patient had an INR of 2.1 on September 11. I did evaluate the patient as noted above. The patient is on Coumadin and suffered a mechanical fall. She complains of left rib pain and facial pain. IV access was established. The patient was placed on a continuous carry all driver. She was given Zofran for nausea IV. I did order and personally review the patient's knee x-rays as described above. I did order and review the patient's blood work as noted in the electronic medical record. Her INR is 1.9. I did order a CT of the head, facial bones, chest and cervical spine. I did review the images myself as well as the radiology report as described above. The patient has several rib fractures on the left side without pneumothorax or hemothorax. She has a nasal fracture but no intracranial hemorrhage. No cervical fracture. I did reassess the patient. She states that whenever she moves she has significant pain. She was given morphine IV. Her daughter does not feel that the patient can take care of herself. I did therefore discussed the case with the leather case finisher and hospitalist. Consults Time Called: 2214 Consulting Physician: Dr. Gómez, from [facility] Returned Call: [phone] I discussed the patient's case with Dr. Gómez, from [facility]. The patient will be evaluated for further management and care. Impression Primary Impression: Multiple fractures of ribs of left side Additional Impressions: Nasal fracture Acute head injury Anticoagulated on Coumadin Fall Scribe Attestation The scribe's documentation has been prepared under my direct and personally reviewed by me in its entirety. I confirm that the note above accurately reflects all work, treatment, procedures, and medical decision making performed by me. Departure Information Dispostion Being Evaluated By Hospitalist Referrals Any Gregg C.R.N.P (PCP) Patient Instructions My [facility] Problem Qualifiers Primary Impression: Multiple fractures of ribs of left side Encounter type: initial encounter Fracture type: closed Qualified Codes: S22.42XA - Multiple fractures of ribs, left side, initial encounter for closed fracture Additional Impressions: Nasal fracture Encounter type: initial encounter Fracture type: closed Qualified Codes: S02.2XXA - Fracture of nasal bones, initial encounter for closed fracture Acute head injury Encounter type: initial encounter Qualified Codes: S09.90XA - Unspecified injury of head, initial encounter Fall Encounter type: initial encounter Qualified Codes: W19.XXXA - Unspecified fall, initial encounter
[2016-09-26 02:12] VITALS: BP_SYST 154; BP_SYST 169; BP_DIAS 110; BP_DIAS 94; PULSE 92; TEMP 36.6; O2SAT 94; Ht 160 cm; Wt 75.0 kg
[2016-09-26] MEDS ORDERED: IV FLUIDS COMPLETED PRN (07:15)
[2016-09-26 07:55] VITALS: BP 162/94; PULSE 88; TEMP 36.4; O2SAT 92
[2016-09-26] MEDS: METOPROLOL SUCC 25MG EXT REL TAB PO SCH (08:35)
[2016-09-26] MEDS: LISINOPRIL 20 MG TAB PO SCH (08:35)
[2016-09-26 08:48] VITALS: O2SAT 92
[2016-09-26] MEDS: CHOLECALCIFEROL 1000 INTER.UNIT TAB PO SCH (09:00)
[2016-09-26] MEDS: DOCUSATE SODIUM 100 MG CAP PO SCH ×2 (09:00→20:46)
[2016-09-26] MEDS ORDERED: FAMOTIDINE 20MG/102 ML D5W IV STA (11:08)
[2016-09-26 12:04] VITALS: BP 144/82; PULSE 85
[2016-09-26] MEDS: FAMOTIDINE IV INJ 20 MG in DEXTROSE 5% 100ML 100 ML IV SCH ×2 (12:07→20:47)
--- NOTE | 2016-09-26 15:04 | Progress Note ---
Subjective Date of Service: September 26, 2016. Subjective Pt evaluation today including: conversation w/ patient, conversation w/ family , chart review, lab review, review of studies, conversation w/ digital marketing consultant, review of inpatient medication list Was having a lot of nausea this morning, feeling sick, not able to work together with therapist, not able to have CT scan of the reevaluation Pain is fairly controlled, however complaining above left knee swelling, middle face swelling and bluish, does not have nose congestion Problem List Medical Problems: (1) Acute head injury Status: Acute (2) Anticoagulated on Coumadin Status: Acute (3) Constipation Status: Acute (4) Fall Status: Acute (5) Generalized abdominal discomfort Status: Acute (6) Multiple fractures of ribs of left side Status: Acute (7) Nasal fracture Status: Acute Review of Systems Constitutional: + fatigue, + weakness, No chills, No fever, No problem reported , No sweats, No weight loss Eyes: No diplopia, No discharge, No eye pain, No redness, No worsening of vision ENT: + see HPI, No dental problems, No hearing loss, No nasal symptoms, No sore throat, No tinnitus, No trouble swallowing, No unusual epistaxis Respiratory: No cough, No dyspnea at rest, No dyspnea on exertion, No hemoptysis, No shortness of breath, No sputum, No wheezing Cardiac: No PND, No chest pain, No claudication, No edema, No orthopnea, No palpitations Abdomen: + nausea, + see HPI, No constipation, No diarrhea, No pain, No vomiting Musculoskeletal: + joint pain, + see HPI, No calf pain, No muscle pain, No swelling Female : No abnormal vaginal bleeding, No dysuria, No hematuria, No incontinence, No urinary frequency, No vaginal discharge Neurologic: No balance problems, No memory loss, No numbness/tingling, No paralysis, No vertigo, No weakness Psychiatric: No anhedonism, No anxiety, No depression symptoms, No insomnia, No substance abuse Heme: No abnormal bleeding/bruising, No clotting problems, No night sweats, No swollen lymph nodes Endo: No excessive thirst, No excessive urination, No fatigue Skin: No bleeding, No color change, No itch, No new/changing skin lesions, No rash Objective Vital Signs Date Time Temp Pulse Resp B/P Pulse Ox O2 Delivery O2 Flow Rate FiO2 09/26/16 12:04 85 144/82 09/26/16 08:48 92 Room Air 09/26/16 07:55 36.4 88 15 162/94 92 09/26/16 07:15 Room Air 09/26/16 02:12 154/94 09/26/16 02:12 36.6 92 18 169/110 94 Room Air 09/26/16 01:18 85 172/91 96 09/26/16 01:05 85 172/91 96 Room Air 09/25/16 22:02 77 16 177/96 92 Room Air 09/25/16 21:20 80 16 174/106 93 Room Air 09/25/16 19:46 36.7 94 18 160/100 96 Room Air Physical Exam General Appearance: WD/WN, no apparent distress, + thin Eyes: normal inspection, PERRL, EOMI, sclerae normal ENT: normal ENT inspection, hearing grossly normal, pharynx normal, + pertinent finding (swelling in the nose, and lower orbital area has bluish,) Neck: supple, no adenopathy, thyroid normal, no JVD, no carotid bruits, trachea midline Respiratory/Chest: chest non-tender, lungs clear, normal breath sounds, no respiratory distress, no accessory muscle use, + decreased breath sounds, + pertinent finding (left chest drier and grinder tender) Cardiovascular: regular rate, rhythm, no edema, no gallop, no JVD, no murmur Abdomen: normal bowel sounds, non tender, soft, no organomegaly, no pulsatile mass Extremities: normal range of motion, non-tender, normal inspection, no pedal edema, no calf tenderness, normal capillary refill, pelvis stable, + pertinent finding (left knee swelling and bluish) 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, no motor/sensory deficits, alert, normal mood/affect, oriented x 3 Skin: normal color, warm/dry, no rash Lymphatic: no adenopathy Laboratory Results Last 24 Hours Test 09/25/16 20:50 White Blood Count 4.40 K/uL Red Blood Count 4.37 M/uL Hemoglobin 12.3 g/dL Hematocrit 38.3 % Mean Corpuscular Volume 87.6 fL Mean Corpuscular Hemoglobin 28.1 pg Mean Corpuscular Hemoglobin Concent 32.1 g/dl Platelet Count 125 K/uL Mean Platelet Volume 8.1 fL Neutrophils (%) (Auto) 60.3 % Lymphocytes (%) (Auto) 28.9 % Monocytes (%) (Auto) 9.5 % Eosinophils (%) (Auto) 0.9 % Basophils (%) (Auto) 0.2 % Neutrophils # (Auto) 2.65 K/uL Lymphocytes # (Auto) 1.27 K/uL Monocytes # (Auto) 0.42 K/uL Eosinophils # (Auto) 0.04 K/uL Basophils # (Auto) 0.01 K/uL RDW Standard Deviation 51.2 fL RDW Coefficient of Variation 15.9 % Immature Granulocyte % (Auto) 0.2 % Immature Granulocyte # (Auto) 0.01 K/uL Prothrombin Time 21.4 SECONDS Prothromb Time International Ratio 1.9 Activated Partial Thromboplast Time 33.9 SECONDS Partial Thromboplastin Ratio 1.3 Sodium Level 139 mmol/L Potassium Level 3.6 mmol/L Chloride Level 105 mmol/L Carbon Dioxide Level 28 mmol/L Anion Gap 6.0 mmol/L Blood Urea Nitrogen 17 mg/dl Creatinine 0.70 mg/dl Est Creatinine Clear Calc Drug Dose 58.0 ml/min Estimated GFR () 92.2 Estimated GFR (Non- 79.6 BUN/Creatinine Ratio 24.0 Random Glucose 122 mg/dl Calcium Level 9.3 mg/dl Assessment and Plan 86 y/o F omitted because of mechanical fall where she suffered trauma to her L chest and face. Initial imaging reveals 3 fractured ribs and a nasal bone fracture. Fall - rib and nasal bone fractures, and possible left knee contusion. Left knee pain and serious ecchymosis, x-ray has no fracture, however will have orthopedic to see She is having difficulty with mobility and may need placement in acute rehab. PT and OT eval. 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 3) HTN - cont metoprolol - ASA held pending AM reassessment 4) Diastolic CHF is listed in pt record she is euvolemic - we will continue her B ambar and ZULAY. Full code - SCDs - Coumadin Discussed with patient and daughter about a care plan, pain control, PT OT, supportive care, and need rehabilitation Continued [facility] stay due to: home environment unsafe for pt Discharge planning: home
[2016-09-26 15:25] VITALS: BP 158/89; PULSE 81; TEMP 36.6; O2SAT 95
--- NOTE | 2016-09-26 20:22 | CONSULTATION REPORT ---
DATE OF CONSULTATION: 09/26/2016 CHIEF COMPLAINT: Left knee pain and ecchymosis. HISTORY OF PRESENT ILLNESS: Ebony is an 86-year-old female admitted yesterday here at [facility] after sustaining a fall. She was walking into her doorway, tripped, and fell, thinks she landed on her knee. She was admitted with rib fractures and nasal fractures and a left knee contusion. She does have some knee pain with weightbearing and range of motion of her knee. No pain prior to this fall. No hip or groin pain. Of note, she is on Coumadin as well. PAST MEDICAL AND SURGICAL HISTORY: Reviewed. Includes atrial fibrillation and breast cancer, DVT, PE, hyperlipidemia, and varicose veins. FAMILY HISTORY: Includes cancer, heart disease, hypertension. SOCIAL HISTORY: Lives with family. Denies tobacco or drug use. ALLERGIES: TO AMOXICILLIN, CEFALEXIN, AMIODARONE. MEDICATIONS: Include Tylenol as needed, aspirin, vitamin D3, Colace, Zestril, metoprolol, Zocor, vitamin E and warfarin, omeprazole. REVIEW OF SYSTEMS: Noncontributory. PHYSICAL EXAMINATION: GENERAL: Today, she is sitting in a chair at bedside. She is alert, in no distress. EXTREMITIES: Examination of the left knee today, she has a hematoma, ecchymosis around the anterior medial aspect of the knee, a fairly large area. No palpable defect in the quad tendon or patellar tendon. She is able to actively extend her knee. Motion today is about 0-100. She does have some pain with range of motion. Skin is warm, dry and intact. IMAGING: X-rays were reviewed of her knee which shows some degenerative changes to her knee as well as chondrocalcinosis. No fractures are seen. IMPRESSION: Left knee contusion/hematoma. PLAN: She was seen and examined today by Dr. Weir as well. We did review her x-ray. She has some underlying degenerative changes and chondrocalcinosis of her knee. There is no acute fracture seen on the x-rays. We talked about management of this problem. We offered to drain the hematoma, but she declined that at this time. We may not be able to obtain any fluid anyway on the aspiration as it may be clotted at this point. If she wishes to proceed with this, we can certainly try at another time. We will order thigh high SHERWIN stocking for some compression. She can continue weightbearing as tolerated. Thank you for this consult and please call with any further questions, . [facility]
[2016-09-26] MEDS: SIMVASTATIN 20 MG TAB PO SCH (20:46)
[2016-09-26 23:35] VITALS: BP 128/77; PULSE 70; TEMP 36.7; O2SAT 96
[2016-09-27 07:17] VITALS: BP 143/81; PULSE 90; TEMP 36.3; O2SAT 96
[2016-09-27] MEDS: LISINOPRIL 20 MG TAB PO SCH (09:23)
[2016-09-27] MEDS: DOCUSATE SODIUM 100 MG CAP PO SCH ×2 (09:23→21:37)
[2016-09-27] MEDS: METOPROLOL SUCC 25MG EXT REL TAB PO SCH (09:23)
[2016-09-27] MEDS: CHOLECALCIFEROL 1000 INTER.UNIT TAB PO SCH (09:24)
[2016-09-27] MEDS: FAMOTIDINE IV INJ 20 MG in DEXTROSE 5% 100ML 100 ML IV SCH ×2 (09:30→21:00)
--- NOTE | 2016-09-27 10:43 | DIAGNOSTIC IMAGING REPORT ---
CT SCAN OF THE BRAIN WITHOUT IV CONTRAST CLINICAL HISTORY: Head injury. COMPARISON STUDY: CT of the brain dated 09/25/2016 and 06/23/2007. MRI of the brain dated 04/09/2008. TECHNIQUE: Unenhanced axial CT scan of the brain is performed from the vertex to the skull base. FINDINGS: Brain parenchyma: There are age-related involutional changes noting moderate patchy subcortical and periventricular microangiopathic change. There is no hemorrhage, mass effect, or evidence of acute territorial ischemia by CT criteria. A 9 mm suprasellar nodule containing calcification seen on image #13 has not significantly changed dating back to 2007. This may represent a tiny meningioma. Park-white matter is preserved. No extra-axial fluid collection is seen. Ventricles, sulci, cisterns: Prominent secondary to involutional change. Intracranial vasculature: There is atherosclerotic calcification of the cavernous carotid and vertebral arteries. Calvarium: The skeletal structures are osteopenic. There is no depressed calvarial fracture. Nondisplaced age indeterminate nasal bone fractures are again noted. There is a lucent lesion seen within the clivus. This is likely been present dating back to 2007. Sinuses and mastoids: Findings are consistent with previous paranasal sinus surgery. There is mild mucosal thickening within the left maxillary antrum. The remaining visualized paranasal sinuses are clear. The mastoid air cells are well pneumatized. Orbits: The bony orbits are grossly intact. There are bilateral ocular lens implants. IMPRESSION: 1. Senescent changes as above with no hemorrhage, mass effect, or evidence of acute territorial ischemia by CT criteria. 2. There is no depressed calvarial fracture. 3. Unchanged appearance of a 9 mm suprasellar nodule containing calcification dating back to 2007. This may represent a small meningioma. 4. 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 Electronically signed by: Julian Lieberman M.D. 09/27/2016 10:41 AM Dictated Date/Time: 09/27/2016 10:28 AM
--- NOTE | 2016-09-27 12:26 | Progress Note ---
Subjective Date of Service: September 27, 2016. Subjective Pt evaluation today including: conversation w/ patient, physical exam, chart review, lab review, review of studies, conversation w/ furniture sales consultant, review of inpatient medication list Feeling better than yesterday, left knee pain is better to, has been eating and drinking, no more nausea vomiting, tolerate diet Problem List Medical Problems: (1) Acute head injury Status: Acute (2) Anticoagulated on Coumadin Status: Acute (3) Constipation Status: Acute (4) Fall Status: Acute (5) Generalized abdominal discomfort Status: Acute (6) Multiple fractures of ribs of left side Status: Acute (7) Nasal fracture Status: Acute Review of Systems Constitutional: No chills, No fatigue, No fever, No problem reported, No sweats , No weakness, No weight loss Eyes: No diplopia, No discharge, No eye pain, No redness, No worsening of vision ENT: No dental problems, No hearing loss, No nasal symptoms, No sore throat, No tinnitus, No trouble swallowing, No unusual epistaxis Respiratory: No cough, No dyspnea at rest, No dyspnea on exertion, No hemoptysis, No shortness of breath, No sputum, No wheezing Cardiac: No PND, No chest pain, No claudication, No edema, No orthopnea, No palpitations Abdomen: No constipation, No diarrhea, No nausea, No pain, No vomiting Musculoskeletal: + joint pain, No calf pain, No muscle pain, No swelling Female : No abnormal vaginal bleeding, No dysuria, No hematuria, No incontinence, No urinary frequency, No vaginal discharge Neurologic: No balance problems, No memory loss, No numbness/tingling, No paralysis, No vertigo, No weakness Psychiatric: No anhedonism, No anxiety, No depression symptoms, No insomnia, No substance abuse Heme: No abnormal bleeding/bruising, No clotting problems, No night sweats, No swollen lymph nodes Endo: No excessive thirst, No excessive urination, No fatigue Skin: + problem reported (middle face bluish), No bleeding, No color change, No itch, No new/changing skin lesions, No rash Objective Vital Signs Date Time Temp Pulse Resp B/P Pulse Ox O2 Delivery O2 Flow Rate FiO2 09/27/16 07:17 36.3 90 18 143/81 96 Room Air 09/27/16 07:10 Room Air 09/26/16 23:45 Room Air 09/26/16 23:35 36.7 70 16 128/77 96 Room Air 09/26/16 16:00 Room Air 09/26/16 15:25 36.6 81 16 158/89 95 Room Air Physical Exam General Appearance: WD/WN, no apparent distress Eyes: normal inspection, PERRL, EOMI, sclerae normal ENT: normal ENT inspection, hearing grossly normal, pharynx normal, + pertinent finding (middle face bluish and mild swelling) Neck: supple, no adenopathy, thyroid normal, no JVD, no carotid bruits, trachea midline Respiratory/Chest: chest non-tender, normal breath sounds, no respiratory distress, no accessory muscle use, + decreased breath sounds, + pertinent finding (left rib cage pain and tender) Cardiovascular: regular rate, rhythm, no edema, no gallop, no JVD, no murmur Abdomen: normal bowel sounds, non tender, soft, no organomegaly, no pulsatile mass Extremities: normal range of motion, non-tender, normal inspection, no pedal edema, no calf tenderness, normal capillary refill, pelvis stable, + pertinent finding (left knee pain bluish and swelling, is a little better than Yesterday) 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 Was admitted on 09/26/2016 Initial imaging reveals 3 fractured ribs and a nasal bone fracture. Fall - rib and nasal bone fractures, and possible left knee contusion. left knee contusion/hematoma. Orthopedic consulted , they offered to drain the hematoma, but she declined that at this time. recs thigh high SHERWIN stocking for some compression. She can continue weightbearing as tolerated. x-ray has no fracture, difficulty with mobility, PT and OT eval. A follow-up CT head is ordered considering her fracture and therapeutic INR, she was unremarkable may need placement in acute rehab. 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
[2016-09-27 15:24] VITALS: BP 130/79; PULSE 70; TEMP 36.7; O2SAT 94
[2016-09-27] MEDS: WARFARIN SOD 3 MG TAB PO SCH (16:33)
--- NOTE | 2016-09-27 19:02 | PROGRESS NOTE ---
DATE: 09/27/2016 SUBJECTIVE: An 86-year-old white female status post a fall with a left knee contusion and hematoma on Coumadin. She is doing well. She says she is getting around well. Pain seems to be getting better. Denies any significant knee pain now. She has a SHERWIN stocking in place. OBJECTIVE: VITAL SIGNS: Temperature 36.7. Vital signs stable. PHYSICAL EXAMINATION: Examination of the left lower extremity reveals the SHERWIN stocking to be in place. The hematoma in the front of her knee looks to be a little bit less than yesterday. She can do a good straight leg raise. Range of motion 0-115 without much pain. Good straight leg raise. She is neurologically intact. ASSESSMENT: An 86-year-old white female status post a fall with multiple facial fractures and a left knee contusion and subcutaneous hematoma. This is in the soft tissues and not in the knee joint. There are no signs of fracture. Her extensor mechanism is intact. We did offer to attempt to drain this, but she deferred and I think it would be unlikely to be very successful as I think the blood is all clotted. I would recommend she wear compression bandage like a SHERWIN stockings for the next several weeks. Some ice and heat as indicated. We are going to sign off for now. Any orthopedic questions can be directed to me at [phone]. She does not need orthopedic followup and can follow up with her primary care doctor. NIRAV
[2016-09-27] MEDS ORDERED: NURSING VERBAL MED ORDER ONE (21:15)
[2016-09-27] MEDS: SIMVASTATIN 20 MG TAB PO SCH (21:37)
[2016-09-27] MEDS ORDERED: ZOLPIDEM TARTRATE 5 MG TAB PO SCH (22:00)
[2016-09-27 23:00] VITALS: BP 144/85; PULSE 76; TEMP 36.8; O2SAT 93
[2016-09-28] VITALS (9 sets, daily range): BP systolic 136–158; BP diastolic 85–92; PULSE 74–90; TEMP 36.6; O2SAT 93–97
[2016-09-28 08:45] LABS: BASO % 0.2 %; BASO ABS # 0.01 K/uL (0-0.2); COMPLETE YES; EOS % 0.8 %; IG% 0.2 %; LYMPH % 47.9 %; LYMPH ABS # 2.53 K/uL (1.2-3.4); MEAN CELL VOLUME 87.9 fL (80-100); MEAN CORPUSCULAR HEMOGLOBIN 29.5 pg (25-34); MEAN CORPUSCULAR HGB CONC 33.5 g/dl (32-36); MEAN PLATELET VOLUME 8.4 fL (7.4-10.4); MONO % 11.7 %; NEUT % 39.2 %; PLATELET COUNT 144 K/uL (130-400); RED BLOOD COUNT 3.87 M/uL (4.2-5.4); WHITE BLOOD COUNT 5.28 K/uL (4.8-10.8)
[2016-09-28] MEDS: DOCUSATE SODIUM 100 MG CAP PO SCH (08:50)
[2016-09-28] MEDS: CHOLECALCIFEROL 1000 INTER.UNIT TAB PO SCH (08:50)
[2016-09-28] MEDS: METOPROLOL SUCC 25MG EXT REL TAB PO SCH (08:51)
[2016-09-28] MEDS: LISINOPRIL 20 MG TAB PO SCH (08:51)
[2016-09-28 08:57] LABS: PROTHROMBIN TIME (PATIENT) 22.1 SECONDS (9.0-12.0)
[2016-09-28] MEDS ORDERED: ASPIRIN 81 MG ECTAB PO SCH (09:00)
[2016-09-28] MEDS: FAMOTIDINE IV INJ 20 MG in DEXTROSE 5% 100ML 100 ML IV SCH (09:00)
[2016-09-28] MEDS ORDERED: TOCOPHERYL, DL-ALPHA 400 INTER.UNIT CAP PO SCH (09:00)
[2016-09-28 09:11] LABS: BUN/CREATININE RATIO 18.7 (10-20); CREATININE 0.55 mg/dl (0.60-1.20); MAGNESIUM 2.1 mg/dl (1.8-2.4); POTASSIUM 3.1 mmol/L (3.5-5.1)
[2016-09-28 09:19] LABS: CALCIUM 9.1 mg/dl (8.5-10.1)
[2016-09-28] MEDS ORDERED: POTASSIUM CHLORIDE 10 MEQ TABCR PO ONE (12:00)
[2016-09-28] MEDS ORDERED: POTASSIUM CHLR 10 MEQ / WTR 10 MEQ in PREMIXED WATER 100 ML IV SCH (12:00)
[2016-09-28] MEDS ORDERED: HYDR-5688 PO (12:32)
--- NOTE | 2016-09-28 12:37 | Discharge Instructions ---
Discharge Instructions Date of Service September 28, 2016. Admission Reason for Admission: Fall, Nasal Bone Fracture Discharge Discharge Diagnosis / Problem: mechanical fall, nasal bone, rib fractures Discharge Goals Goal(s): Diagnostic testing Activity Recommendations Activity Limitations: as noted below .weight bearing as tolerated on Left leg ambulate with roller walker Instructions / Follow-Up Instructions / Follow-Up You were treated in the hospital for a fall that resulted in a nasal bone fracture and multiple rib fractures. Your Coumadin was held initially in the hospital because of possible bleeding from your fall. A CAT scan of your head was performed twice. There are no signs of bleeding The following changes/additions have been made to your medication list: -PLEASE HOLD YOUR BABY ASPIRIN. YOU MAY RESUME IT ON 09/30 -NORCO please take 1 tablet every 4 hours as needed for severe rib pain. Please do not drive or operate machinery while taking this medication. It is recommended that you take a stool softener daily such as Colace to prevent constipation as long as you are taking the pain medication Please continue to use your incentive spirometer every hour while awake for an additional 10 days. This is to prevent pneumonia. It is important to follow up with your primary care provider within one week of discharge Call your doctor or return to the emergency department if you have any of the following symptoms: -Severe dizziness -Weakness on one side of her body -Changes in vision -Severe knee pain -Difficulty breathing -Worsening chest pain Current Hospital Diet Patient's current hospital diet: AHA Diet (Heart Healthy) Discharge Diet Recommended Diet: Regular Diet Pending Studies Studies pending at discharge: no Laboratory Results 09/28/16 08:06 Red Blood Count 3.87, Mean Corpuscular Volume 87.9, Mean Corpuscular Hemoglobin 29.5, Mean Corpuscular Hemoglobin Concent 33.5, Mean Platelet Volume 8.4, Neutrophils (%) (Auto) 39.2, Lymphocytes (%) (Auto) 47.9, Monocytes (%) (Auto) 11.7, Eosinophils (%) (Auto) 0.8, Basophils (%) (Auto) 0.2, Neutrophils # (Auto ) 2.07, Lymphocytes # (Auto) 2.53, Monocytes # (Auto) 0.62, Eosinophils # (Auto ) 0.04, Basophils # (Auto) 0.01 09/28/16 08:06 Test 09/28/16 08:06 White Blood Count 5.28 K/uL (4.8-10.8) Red Blood Count 3.87 M/uL (4.2-5.4) Hemoglobin 11.4 g/dL (12.0-16.0) Hematocrit 34.0 % (37-47) Mean Corpuscular Volume 87.9 fL (80-100) Mean Corpuscular Hemoglobin 29.5 pg (25-34) Mean Corpuscular Hemoglobin Concent 33.5 g/dl (32-36) Platelet Count 144 K/uL (130-400) Mean Platelet Volume 8.4 fL (7.4-10.4) Neutrophils (%) (Auto) 39.2 % Lymphocytes (%) (Auto) 47.9 % Monocytes (%) (Auto) 11.7 % Eosinophils (%) (Auto) 0.8 % Basophils (%) (Auto) 0.2 % Neutrophils # (Auto) 2.07 K/uL (1.4-6.5) Lymphocytes # (Auto) 2.53 K/uL (1.2-3.4) Monocytes # (Auto) 0.62 K/uL (0.11-0.59) Eosinophils # (Auto) 0.04 K/uL (0-0.5) Basophils # (Auto) 0.01 K/uL (0-0.2) RDW Standard Deviation 51.1 fL (36.4-46.3) RDW Coefficient of Variation 16.1 % (11.5-14.5) Immature Granulocyte % (Auto) 0.2 % Immature Granulocyte # (Auto) 0.01 K/uL (0.00-0.02) Prothrombin Time 22.1 SECONDS (9.0-12.0) Prothromb Time International Ratio 2.0 (0.9-1.1) Anion Gap 8.0 mmol/L (3-11) Est Creatinine Clear Calc Drug Dose 73.8 ml/min Estimated GFR () 99.8 Estimated GFR (Non- 86.1 BUN/Creatinine Ratio 18.7 (10-20) Calcium Level 9.1 mg/dl (8.5-10.1) Magnesium Level 2.1 mg/dl (1.8-2.4) Medical Emergencies . Who to Call and When: Medical Emergencies: If at any time you feel your situation is an emergency, please call 911 immediately. . Non-Emergent Contact Non-Emergency issues call your: Primary Care Provider . . "Provider Documentation" section prepared by Cinthia Miranda. . VTE Core Measure Inpt VTE Proph given/why not?: Warfarin (Coumadin), T.E.D. Stockings, SCD's
--- NOTE | 2016-09-28 12:45 | Discharge Summary ---
Discharge Summary Date of Service September 28, 2016. Discharge Summary Admission Date: September 26, 2016 at 15:48 Discharge Date: September 28, 2016 Discharge Disposition: Home Principal Diagnosis: mechanical fall, rib fractures, nasal bone fractures Immunizations: Have You Had Influenza Vaccine: Yes Influenza Vaccine Date: Mar 07, 2011 History of Tetanus Vaccine?: No History of Pneumococcal: Yes Pneumococcal Date: Feb 20, 2008 History of Hepatitis B Vaccine: No Medication Reconciliation New Medications: Hydrocodone/Acetaminophen 5MG/325MG ([place] 5MG/325MG) Tab 1 TABLET PO Q4H PRN for Pain for 3 Days, #12 TAB Continued Medications: Acetaminophen/Diphenhydramine (Tylenol Pm) 500 Mg/25 Mg Tab 1 TAB PO HS, TAB Cholecalciferol (Vitamin D3) 1,000 Unit Cap 1000 INTER.UNIT PO DAILY Docusate Sodium (Colace) 100 Mg Cap 1 CAP PO BID for 30 Days, #60 CAP Lisinopril (Zestril) 20 Mg Tab 20 MG PO DAILY, TAB Metoprolol Succinate (Metoprolol Succinate ER) 25 Mg Tabcr 12.5 MG PO DAILY Omeprazole (Prilosec) 20 Mg Capcr 20 MG PO DAILY PRN for Heartburn, CAP Simvastatin (Zocor) 20 Mg Tab 20 MG PO HS Vitamin E (Vitamin E) 1,000 Unit Cap 1000 UNITS PO DAILY Warfarin Sodium (Warfarin Sodium) 3 Mg Tab 3 MG PO DAILY Discontinued Medications: Aspirin (Aspirin Low Dose) 81 Mg Tab 81 MG PO DAILY Referrals At Discharge Follow up Referrals: Physician Referral - Within 1 Week with Any Gregg C.R.N.P Discharge Exam Patient complains of left anterior upper rib pain that is exacerbated with moving around. She is fairly comfortable at rest. She denies any shortness of breath. She denies any headaches, changes in vision or dizziness. She does not think that she needs anything for pain right now. She is anxious to be discharged home. Review of Systems: Constitutional: No fever, No weakness Respiratory: No cough, No shortness of breath Cardiovascular: + chest pain Abdomen: No nausea Neurologic: No weakness Physical Exam: General Appearance: no apparent distress (resting comfortably in bed.) Eyes: EOMI ENT: + pertinent finding (significant ecchymosis noted to the nasal area, forehead and periorbital area.) Neck: no JVD Respiratory/Chest: lungs clear, + pertinent finding (tenderness to palpation in the left upper anterior ribs) Cardiovascular: regular rate, rhythm Abdomen / GI: normal bowel sounds, non tender, soft Extremities: no calf tenderness, + pertinent finding (trace pitting edema in the lower extremities right greater than left.) Neurologic/Psychiatric: no motor/sensory deficits Hospital Course 86 y/o F admitted because of mechanical fall on Coumadin where she suffered trauma to her L chest and face. Was admitted on 09/26/2016 Initial imaging reveals 3 fractured ribs and a nasal bone fracture. Fall - rib and nasal bone fractures, and possible left knee contusion. -coumadin held-->restarted on the day of discharge -Head CT neg for bleed x 2 -left knee contusion/hematoma-->ortho consulted, declined aspiration to drain hematoma. Apply compression stockings and warm compresses. WBAT -for rib fx--> continue incentive spirometry every hour while awake for at least 10 days -given norco q 4 hr prn for pain -PT/OT eval done x 2--> ok for d/c home, which is pt's and pt's family's wishes. Ambulate with roller walker. Rx given DVT/PE - chronic anticoagulation with Coumadin INR was therapeutic Coumadin restarted after discussed the risk and benefit with the patient HTN -cont metoprolol and lisinopril Diastolic CHF -compensated continue current medication DVT prophylaxis -INR therapeutic -TEDS, SCDs Full code Total Time Spent: Greater than 30 minutes This includes examination of the patient, discharge planning, medication reconciliation, and communication with other providers. Discharge Instructions Please refer to the electronic Patient Visit Report (Discharge Instructions) for additional information. Follow-Up PCP 1 week Additional Copies To Any Gregg C.R.N.P
[2016-09-28] MEDS: WARFARIN SOD 3 MG TAB PO SCH (16:34)
== END 2016-09-28 17:15 | disposition home or self-care (01) | DRG 184 ==
LOC: CANRESERV → ENRESERVDT → ENRESERVTM → C.EDB 19:39 → C.MSN 09-26 00:28 → OBSVTOIN 09-26 15:48
PROVIDERS: ADMIT Internal Medicine; ATTEND Hospitalist
DX: S22.42XA Multiple fractures of ribs, left side, initial encounter for closed fracture (principal); I50.30 Unspecified diastolic (congestive) heart failure; S02.2XXA Fracture of nasal bones, initial encounter for closed fracture; S80.02XA Contusion of left knee, initial encounter; W18.09XA Striking against other object with subsequent fall, initial encounter; Z79.01 Long term (current) use of anticoagulants; Z79.82 Long term (current) use of aspirin; Z79.899 Other long term (current) drug therapy; I10 Essential (primary) hypertension; Y92.018 Other place in single-family (private) house as the place of occurrence of the external cause

== ENCOUNTER → 2016-10-19 | Outpatient (CLI) | payer OTHER ==
[~2016-10-19] MED LIST changes: -ASPI1TAB48 PO; +ASPI81TA28 PO; +OXYC1TAB3 PO
--- NOTE | 2016-10-19 13:14 | DIAGNOSTIC IMAGING REPORT ---
ULTRASOUND VENOUS DOPPLER ULTRASOUND OF THE LEFT LOWER EXTREMITY CLINICAL HISTORY: M79.605 Pain and swelling of left lower extremity. History of trauma. COMPARISON STUDY: No previous studies for comparison. FINDINGS: There is fibrin stranding within the common femoral, superficial femoral, and popliteal vein. No acute intraluminal thrombus is visualized. There is no visualized acute proximal calf vein thrombus. IMPRESSION: 1. No evidence of acute left lower extremity DVT 2. Chronic fibrin stranding within the common femoral, superficial femoral, popliteal veins, likely the sequela of a prior episode of DVT Electronically signed by: Mahesh Mojica M.D. 10/19/2016 1:13 PM Dictated Date/Time: 10/19/2016 1:11 PM
== END | disposition home or self-care (01) ==
LOC: C.ULTRBC 12:39
PROVIDERS: ATTEND Nurse Practitioner
DX: M79.605 Pain in left leg (principal); M79.89 Other specified soft tissue disorders

== ENCOUNTER 2017-04-10 18:20 | Observation (INO) | payer OTHER ==
[~2017-04-10] VITALS: Ht 165.1 cm; Wt 78.9 kg
[~2017-04-10 18:20] MED LIST changes: -ASPI81TA28 PO; -OXYC1TAB3 PO
[2017-04-10] MEDS ORDERED: ONDANSETRON INJ 2 MG/ML 2 ML VIAL IV STA (18:30)
[2017-04-10] MEDS ORDERED: MoRPHine SULFATE 2 MG/ML CARP IV STA (18:30)
[2017-04-10 19:00] LABS: BASO % 0.3 %; BASO ABS # 0.02 K/uL (0-0.2); COMPLETE YES; HEMATOCRIT 37.5 % (37-47); IG% 0.3 %; LYMPH % 29.4 %; LYMPH ABS # 1.76 K/uL (1.2-3.4); MEAN CELL VOLUME 89.5 fL (80-100); MEAN CORPUSCULAR HEMOGLOBIN 30.8 pg (25-34); MEAN CORPUSCULAR HGB CONC 34.4 g/dl (32-36); MEAN PLATELET VOLUME 8.6 fL (7.4-10.4); MONO % 11.4 %; NEUT % 57.6 %; PLATELET COUNT 120 K/uL (130-400); RED BLOOD COUNT 4.19 M/uL (4.2-5.4); WHITE BLOOD COUNT 5.98 K/uL (4.8-10.8)
[2017-04-10 19:10] LABS: INR 2.7 (0.9-1.1); PARTIAL THROMBOPLASTIN RATIO 1.5; PROTHROMBIN TIME (PATIENT) 28.1 SECONDS (9.0-12.0)
--- NOTE | 2017-04-10 19:11 | DIAGNOSTIC IMAGING REPORT ---
HEAD WITHOUT CONTRAST (CT) CT DOSE: 1117.82 mGy.cm HISTORY: Trauma eval for bleed TECHNIQUE: Multiaxial CT images of the head were performed without the use of intravenous contrast. A dose lowering technique was utilized adhering to the principles of ALARA. Comparison: None. Findings: The paranasal sinuses and mastoid air cells are clear. The calvarium and skull base are intact. The ventricles and sulci are within normal limits. There is no mass, hematoma, midline shift, or acute infarct. Impression: No acute intracranial abnormality. Age-related and chronic change. The above report was generated using voice recognition software. It may contain grammatical, syntax or spelling errors. Electronically signed by: Reji Matthews M.D. 04/10/2017 7:10 PM Dictated Date/Time: 04/10/2017 7:08 PM
--- NOTE | 2017-04-10 19:16 | DIAGNOSTIC IMAGING REPORT ---
CERVICAL SPINE W/O CT DOSE: HISTORY: Trauma eval for fx TECHNIQUE: Multiaxial CT images of the cervical spine were performed and reformatted in the sagittal and coronal plane without the use of contrast. A dose lowering technique was utilized adhering to the principles of ALARA. COMPARISON: 09/25/2016 FINDINGS: Moderate degenerative change. No evidence for an acute compression deformity. Posterior elements are intact. Degenerative changes lateral facets. IMPRESSION: No fractures within the cervical spine. Moderate degenerative change The above report was generated using voice recognition software. It may contain grammatical, syntax or spelling errors. Electronically signed by: Reji Matthews M.D. 04/10/2017 7:15 PM Dictated Date/Time: 04/10/2017 7:13 PM
[2017-04-10 19:21] LABS: BUN/CREATININE RATIO 14.9 (10-20); CALCIUM 9.7 mg/dl (8.5-10.1); CREATININE 0.65 mg/dl (0.60-1.20); POTASSIUM 3.4 mmol/L (3.5-5.1)
--- NOTE | 2017-04-10 19:21 | DIAGNOSTIC IMAGING REPORT ---
FACIAL BONES-MXILLOFAC WITHOUT CT DOSE: HISTORY: Trauma eval for fx TECHNIQUE: Multiaxial CT images of the maxillofacial region were performed and reformatted in the coronal plane without the use of contrast. A dose lowering technique was utilized adhering to the principles of ALARA. COMPARISON: 09/25/2016 FINDINGS: Stable degenerative and postoperative changes to the sinuses. No well-defined acute bony abnormality. Orbital margins appear to be intact. No abnormality of the zygomatic arches. Old fracture of the tips of the nasal bones. A potential renal fracture is present. Mild nasal soft tissue edema. IMPRESSION: 1. Nondisplaced fracture tip nasal bones superimposed upon a pre-existing fracture. 2. No additional acute abnormality is identified. The above report was generated using voice recognition software. It may contain grammatical, syntax or spelling errors. Electronically signed by: Reji Matthews M.D. 04/10/2017 7:20 PM Dictated Date/Time: 04/10/2017 7:17 PM
[2017-04-10] MEDS ORDERED: ASPI81TA28 PO (19:25)
--- NOTE | 2017-04-10 20:14 | DIAGNOSTIC IMAGING REPORT ---
L HUMERUS MIN 2 VIEWS ROUTINE CLINICAL HISTORY: eval for fx trauma COMPARISON: None. DISCUSSION: Fracture humeral head and neck. Remainder of the humerus is unremarkable. There is no evidence for soft tissue swelling. IMPRESSION: Fracture humeral head and neck. The above report was generated using voice recognition software. It may contain grammatical, syntax or spelling errors. Electronically signed by: Reji Matthews M.D. 04/10/2017 8:13 PM Dictated Date/Time: 04/10/2017 8:12 PM
--- NOTE | 2017-04-10 20:15 | DIAGNOSTIC IMAGING REPORT ---
L SHOULDER MIN 2 VIEWS ROUTINE CLINICAL HISTORY: eval for fx trauma. Pain. COMPARISON: None. DISCUSSION: Fracture humeral head and neck. No evidence of dislocation. Slight impaction. Moderate degenerative change of all remaining osseous structures. There is no evidence for soft tissue swelling. IMPRESSION: Slightly impacted fracture humeral head and neck. No evidence dislocation. The above report was generated using voice recognition software. It may contain grammatical, syntax or spelling errors. Electronically signed by: Reji Matthews M.D. 04/10/2017 8:14 PM Dictated Date/Time: 04/10/2017 8:13 PM
[2017-04-10] MEDS ORDERED: OXYC1TAB3 PO (20:39)
[2017-04-10] MEDS ORDERED: OXYCODONE IR HOME PACK PO ONE (20:45)
--- NOTE | 2017-04-10 21:53 | History and Physical ---
History & Physical Date & Time of Service: Apr 10, 2017 at 21:46 Chief Complaint: Fall, Left Shoulder Pain, Nose Bleed Primary Care Physician: Any Gregg C.R.N.P History of Present Illness Source: patient 86 y/o F Hx HTN, HPL, DVT/PE - on Coumadin, frequent falls leading to multiple fractures. The pt was admitted 09/20 following a fall where she has sustained nasal bone and rib fractures. Present following an additional fall onto her L side. She sustained trauma to her L arm and face. Imaging is consistent with a L humeral head and neck fracture and nasal bone fractures. She describes the fall as mechanical and denies preceding symptoms. She denies CP, SOB, light-headedness or palpitations prior to falling. She cannot safely mobilize at present and will require placement in rehab in addition to evaluation by the orthopedist. Past Medical/Surgical History Medical Problems: (1) Atrial fibrillation Status: Chronic (2) Carcinoma of breast Status: Chronic (3) Deep venous thrombosis Status: Chronic (4) Hyperlipidemia Status: Chronic (5) Pulmonary embolism Status: Chronic (6) Varicose veins Status: Chronic Family History FH: cancer FH: heart disease Hypertension Social History Smoking Status: Never Smoker Drug Use: none Marital Status: Housing status: lives with family Occupational Status: retired Immunizations History of Influenza Vaccine: Yes Influenza Vaccine Date: Mar 07, 2011 History of Tetanus Vaccine?: No History of Pneumococcal: Yes Pneumococcal Date: Feb 20, 2008 History of Hepatitis B Vaccine: No Multi-Drug Resistant Organisms History of MDRO: No Allergies Coded Allergies: Amoxicillin (Verified Allergy, Intermediate, RASH; PURPLE SKIN, 04/10/17) Cephalexin (Verified Allergy, Mild, rash, 04/10/17) Amiodarone (Verified Allergy, Unknown, RASH, 04/10/17) Home Medications Scheduled Acetaminophen/Diphenhydramine (Tylenol Pm), 1 TAB PO HS Aspirin (Aspirin Ec), 81 MG PO QAM Cholecalciferol (Vitamin D3), 1,000 INTER.UNIT PO DAILY Docusate Sodium (Colace), 1 CAP PO BID Lisinopril (Zestril), 20 MG PO DAILY Metoprolol Succinate (Metoprolol Succinate ER), 12.5 MG PO DAILY Simvastatin (Zocor), 20 MG PO QAM Warfarin Sodium (Warfarin Sodium), 3 MG PO DAILY Scheduled PRN Omeprazole (Prilosec), 20 MG PO DAILY PRN for Heartburn Oxycodone Ir (Roxicodone Ir), 2.5 MG PO Q4H PRN for Pain Review of Systems Constitutional: No fever, No chills, No sweats Eyes: No worsening of vision ENT: + nasal symptoms (pain due to fracture), No hearing loss Respiratory: No cough, No sputum, No wheezing Cardiovascular: No chest pain, No orthopnea, No PND Abdomen: No pain, No nausea, No vomiting Musculoskeletal: + joint pain, + problem reported (Severe pain in L arm/ shoulder in addition to nasal area) Genitourinary - Female: No dysuria, No urinary frequency, No urinary urgency Neurologic: No memory loss, No paralysis Psychiatric: No depression symptoms Endocrine: No fatigue Hematologic / Lymphatic: No abnormal bleeding/bruising Integumentary: No rash Allergic / Immunologic: No environmental allergies Physical Exam Vital Signs Date Time Temp Pulse Resp B/P (MAP) Pulse Ox O2 Delivery O2 Flow Rate FiO2 04/10/17 20:50 84 18 119/67 95 Room Air 04/10/17 20:04 76 131/87 91 Room Air 04/10/17 18:39 37.1 80 151/88 96 Room Air General Appearance: WD/WN, no apparent distress Head: + pertinent finding (Periorbital bruising/edema - swelling and edema of thenasal bridge) ENT: normal ENT inspection, pharynx normal Neck: supple, no JVD Respiratory/Chest: chest non-tender, lungs clear, normal breath sounds Cardiovascular: regular rate, rhythm, no edema, no gallop Abdomen/GI: normal bowel sounds, non tender, soft Back: normal inspection, no CVA tenderness Extremities/Musculoskelatal: normal inspection, no calf tenderness, normal capillary refill Neurologic/Psych: crew boss II-XII nml as tested, no motor/sensory deficits, alert, oriented x 3 Skin: normal color, warm/dry, no rash, + pertinent finding (Facial bruising is apparent ) Diagnostics Laboratory Results Results Past 24 Hours Test 04/10/17 18:42 Range/Units White Blood Count 5.98 4.8-10.8 K/uL Red Blood Count 4.19 4.2-5.4 M/uL Hemoglobin 12.9 12.0-16.0 g/dL Hematocrit 37.5 37-47 % Mean Corpuscular Volume 89.5 80-100 fL Mean Corpuscular Hemoglobin 30.8 25-34 pg Mean Corpuscular Hemoglobin Concent 34.4 32-36 g/dl Platelet Count 120 130-400 K/uL Mean Platelet Volume 8.6 7.4-10.4 fL Neutrophils (%) (Auto) 57.6 % Lymphocytes (%) (Auto) 29.4 % Monocytes (%) (Auto) 11.4 % Eosinophils (%) (Auto) 1.0 % Basophils (%) (Auto) 0.3 % Neutrophils # (Auto) 3.44 1.4-6.5 K/uL Lymphocytes # (Auto) 1.76 1.2-3.4 K/uL Monocytes # (Auto) 0.68 0.11-0.59 K/uL Eosinophils # (Auto) 0.06 0-0.5 K/uL Basophils # (Auto) 0.02 0-0.2 K/uL RDW Standard Deviation 50.7 36.4-46.3 fL RDW Coefficient of Variation 15.5 11.5-14.5 % Immature Granulocyte % (Auto) 0.3 % Immature Granulocyte # (Auto) 0.02 0.00-0.02 K/uL Prothrombin Time 28.1 9.0-12.0 SECONDS Prothromb Time International Ratio 2.7 0.9-1.1 Activated Partial Thromboplast Time 38.0 21.0-31.0 SECONDS Partial Thromboplastin Ratio 1.5 Sodium Level 133 136-145 mmol/L Potassium Level 3.4 3.5-5.1 mmol/L Chloride Level 101 98-107 mmol/L Carbon Dioxide Level 28 21-32 mmol/L Anion Gap 4.0 3-11 mmol/L Blood Urea Nitrogen 10 7-18 mg/dl Creatinine 0.65 0.60-1.20 mg/dl Est Creatinine Clear Calc Drug Dose 66.9 ml/min Estimated GFR () 94.5 Estimated GFR (Non- 81.5 BUN/Creatinine Ratio 14.9 10-20 Random Glucose 133 70-99 mg/dl Calcium Level 9.7 8.5-10.1 mg/dl Diagnostic Radiology XR LUE: L Fracture humeral head and neck. Maxillofacial CT: 1. Nondisplaced fracture tip nasal bones superimposed upon a pre-existing fracture. 2. No additional acute abnormality is identified. Impression Assessment and Plan 86 y/o F Hx HTN, HPL, DVT/PE - on Coumadin, frequent falls leading to multiple fractures. The pt was admitted 09/20 following a fall where she has sustained nasal bone and rib fractures. Present following an additional fall onto her L side. She sustained trauma to her L arm and face. Imaging is consistent with a L humeral head and neck fracture and nasal bone fractures. She describes the fall as mechanical and denies preceding symptoms. She denies CP, SOB, light-headedness or palpitations prior to falling. She cannot safely mobilize at present and will require placement in rehab in addition to evaluation by the orthopedist. 1) Fall - humeral and nasal fractures - the pt may need placement in rehab and will be assessed by PT/OT and orthopedics. We will obtain an additional CT head AM as she describes persistent and nausea and is dizzy when attempting to ambulate. Going forward, she has an appt at the [facility] in the coming week which may be of some utility, although she will continue to be at risk of falls. Despite this she will need to remain on Coumadin as she reports rapid formation of DVTs in the absence of anticoagulation. 2) History of DVT/PE - As mentioned - she is highly prone to clot formation and will need to resume Coumadin when possible. Coumadi has been held at present due to her fall and acute fractures. 3) HTN - cont Metoprolol, Lisinopril 4) HPL - cont Statin Full code - SCDs Total time for this admit including review of labs, meds, imaging - discussion with pt and ER attending - 37 min Level of Care Med/Surg Resuscitation Status FULL RESUSCITATION VTE Prophylaxis Given or contraindicated: SCD's
[2017-04-10] MEDS ORDERED: ACETAMINOPHEN 325 MG TAB PO PRN (22:15)
[2017-04-10] MEDS ORDERED: ALUMINUM/MAGNESIUM/SIMETH (MAALOX MAX) 30 ML UDC PO PRN (22:15)
[2017-04-10] MEDS ORDERED: MAGNESIUM HYDROXIDE SUSP 30 ML UDC PO PRN (22:15)
[2017-04-10] MEDS ORDERED: ONDANSETRON INJ 2 MG/ML 2 ML VIAL IV PRN (22:15)
[2017-04-10] MEDS ORDERED: POLYETHYLENE (MIRALAX) 17 GM PACK PO PRN (22:15)
[2017-04-10] MEDS ORDERED: MoRPHine SULFATE 2 MG/ML CARP IV PRN (22:30)
[2017-04-10] MEDS ORDERED: TRAMADOL HCL 50 MG TAB PO PRN (22:30)
[2017-04-10] MEDS ORDERED: OXYCODONE HCL IR 5 MG TAB (IMMEDIATE RELEASE) PO PRN (22:30)
[2017-04-10 23:11] VITALS: BP 126/64; PULSE 87; TEMP 37.3; O2SAT 95
[2017-04-10] MEDS ORDERED: IV FLUIDS COMPLETED PRN (23:45)
[2017-04-10 23:50] VITALS: Ht 165.1 cm; Wt 78.9 kg
--- NOTE | 2017-04-10 23:52 | EMERGENCY ROOM VISIT NOTE ---
History Report prepared by Devon: Michelle Fierro Under the Supervision of: Dr. Dar Alvarado M.D. First contact with patient: 18:22 Stated Complaint: FALL, LEFT SHOULDER PAIN, NOSE BLEED History of Present Illness The patient is an 86 year old female who presents to the Emergency Room with complaints of an episode of a fall occurring prior to arrival. The patient states that she got her foot caught and fell. She reports that she hit her face and left arm. The patient denies a headache. The patient complains of nose pain and left shoulder pain. She notes that she can feel and move all her fingers. She denies any neck pain and loss of consciousness. She notes that she is still on Coumadin for atrial fibrillation. The patient denies fevers, recent sickness , shortness of breath, chest pain, abdominal pain, hip pain, and back pain. Source of History: patient Onset: prior to arrival Position: other (global) Quality: other (global) Timing: other (episode) Associated Symptoms: No LOC, No fevers, No headache, No neck pain, No chest pain, No SOB, No abdominal pain, No back pain Note: The patient complains of nose pain and left shoulder pain. The patient denies any hip pain. Review of Systems See HPI for pertinent positives & negatives. A total of 10 systems reviewed and were otherwise negative. Past Medical & Surgical Medical Problems: (1) Atrial fibrillation (2) Carcinoma of breast (3) Deep venous thrombosis (4) fall rib fx (5) Humeral fracture (6) Hyperlipidemia (7) Nasal bone fracture (8) Pulmonary embolism (9) Varicose veins Family History FH: cancer FH: heart disease Hypertension Social History Smoking Status: Never Smoker Alcohol Use: none Drug Use: none Marital Status: Housing Status: lives with family Occupation Status: retired Current/Historical Medications Scheduled Acetaminophen/Diphenhydramine (Tylenol Pm), 1 TAB PO HS Aspirin (Aspirin Ec), 81 MG PO QAM Cholecalciferol (Vitamin D3), 1,000 INTER.UNIT PO DAILY Docusate Sodium (Colace), 1 CAP PO BID Lisinopril (Zestril), 20 MG PO DAILY Metoprolol Succinate (Metoprolol Succinate ER), 12.5 MG PO DAILY Simvastatin (Zocor), 20 MG PO QAM Warfarin Sodium (Warfarin Sodium), 3 MG PO DAILY Scheduled PRN Omeprazole (Prilosec), 20 MG PO DAILY PRN for Heartburn Oxycodone Ir (Roxicodone Ir), 2.5 MG PO Q4H PRN for Pain Allergies Coded Allergies: Amoxicillin (Verified Allergy, Intermediate, RASH; PURPLE SKIN, 04/10/17) Cephalexin (Verified Allergy, Mild, rash, 04/10/17) Amiodarone (Verified Allergy, Unknown, RASH, 04/10/17) Physical Exam Vital Signs Date Time Temp Pulse Resp B/P (MAP) Pulse Ox O2 Delivery O2 Flow Rate FiO2 04/10/17 23:30 88 18 145/92 94 Room Air 04/10/17 20:50 84 18 119/67 95 Room Air 04/10/17 20:04 76 131/87 91 Room Air 04/10/17 18:39 37.1 80 151/88 96 Room Air Physical Exam Constitutional: Vital signs reviewed. Eyes: Pupils are equal round reactive to light. Conjunctiva are noninjected. ENT: Pharynx is clear without erythema or exudate. Mucous membranes are moist. Neck supple without meningeal signs. Bruising and swelling to her nose. Otherwise no mid facial tenderness. No septal hematoma. Epistaxis from the left nostril. Respiratory: Clear to auscultation bilaterally. Breath sounds are equal bilaterally. Cardiovascular: Regular rate and rhythm. No rubs or gallops. GI: Soft, nondistended and nontender. Bowel sounds are present. Musculoskeletal: No midline tenderness to the cervical, thoracic, or lumbosacral spine. No hip tenderness. Tenderness to the left anterior shoulder with normal distal pulses. Integumentary: No cyanosis. Neurological: The patient is awake and alert. Cranial nerves II-XII are intact. Motor is 5 out of 5 all extremities. Sensation is intact to light touch all extremities. Normal speech. Psychiatric: Normal affect. Medical Decision & Procedures ER Provider Diagnostic Interpretation: Radiology results as stated below per my review and the radiologist's interpretation: FACIAL BONES-MXILLOFAC WITHOUT CT DOSE: HISTORY: Trauma eval for fx TECHNIQUE: Multiaxial CT images of the maxillofacial region were performed and reformatted in the coronal plane without the use of contrast. A dose lowering technique was utilized adhering to the principles of ALARA. COMPARISON: 09/25/2016 FINDINGS: Stable degenerative and postoperative changes to the sinuses. No well-defined acute bony abnormality. Orbital margins appear to be intact. No abnormality of the zygomatic arches. Old fracture of the tips of the nasal bones. A potential renal fracture is present. Mild nasal soft tissue edema. IMPRESSION: 1. Nondisplaced fracture tip nasal bones superimposed upon a pre-existing fracture. 2. No additional acute abnormality is identified. The above report was generated using voice recognition software. It may contain grammatical, syntax or spelling errors. Electronically signed by: Reji Matthews M.D. 04/10/2017 7:20 PM Dictated Date/Time: 04/10/2017 7:17 PM HEAD WITHOUT CONTRAST (CT) CT DOSE: 1117.82 mGy.cm HISTORY: Trauma eval for bleed TECHNIQUE: Multiaxial CT images of the head were performed without the use of intravenous contrast. A dose lowering technique was utilized adhering to the principles of ALARA. Comparison: None. Findings: The paranasal sinuses and mastoid air cells are clear. The calvarium and skull base are intact. The ventricles and sulci are within normal limits. There is no mass, hematoma, midline shift, or acute infarct. Impression: No acute intracranial abnormality. Age-related and chronic change. The above report was generated using voice recognition software. It may contain grammatical, syntax or spelling errors. Electronically signed by: Reji Matthews M.D. 04/10/2017 7:10 PM Dictated Date/Time: 04/10/2017 7:08 PM CERVICAL SPINE W/O CT DOSE: HISTORY: Trauma eval for fx TECHNIQUE: Multiaxial CT images of the cervical spine were performed and reformatted in the sagittal and coronal plane without the use of contrast. A dose lowering technique was utilized adhering to the principles of ALARA. COMPARISON: 09/25/2016 FINDINGS: Moderate degenerative change. No evidence for an acute compression deformity. Posterior elements are intact. Degenerative changes lateral facets. IMPRESSION: No fractures within the cervical spine. Moderate degenerative change The above report was generated using voice recognition software. It may contain grammatical, syntax or spelling errors. Electronically signed by: Reji Matthews M.D. 04/10/2017 7:15 PM Dictated Date/Time: 04/10/2017 7:13 PM L SHOULDER MIN 2 VIEWS ROUTINE CLINICAL HISTORY: eval for fx trauma. Pain. COMPARISON: None. DISCUSSION: Fracture humeral head and neck. No evidence of dislocation. Slight impaction. Moderate degenerative change of all remaining osseous structures. There is no evidence for soft tissue swelling. IMPRESSION: Slightly impacted fracture humeral head and neck. No evidence dislocation. The above report was generated using voice recognition software. It may contain grammatical, syntax or spelling errors. Electronically signed by: Reji Matthews M.D. 04/10/2017 8:14 PM Dictated Date/Time: 04/10/2017 8:13 PM L HUMERUS MIN 2 VIEWS ROUTINE CLINICAL HISTORY: eval for fx trauma COMPARISON: None. DISCUSSION: Fracture humeral head and neck. Remainder of the humerus is unremarkable. There is no evidence for soft tissue swelling. IMPRESSION: Fracture humeral head and neck. The above report was generated using voice recognition software. It may contain grammatical, syntax or spelling errors. Electronically signed by: Reji Matthews M.D. 04/10/2017 8:13 PM Dictated Date/Time: 04/10/2017 8:12 PM Laboratory Results 04/10/17 18:42 Red Blood Count 4.19, Mean Corpuscular Volume 89.5, Mean Corpuscular Hemoglobin 30.8, Mean Corpuscular Hemoglobin Concent 34.4, Mean Platelet Volume 8.6, Neutrophils (%) (Auto) 57.6, Lymphocytes (%) (Auto) 29.4, Monocytes (%) (Auto) 11.4, Eosinophils (%) (Auto) 1.0, Basophils (%) (Auto) 0.3, Neutrophils # (Auto ) 3.44, Lymphocytes # (Auto) 1.76, Monocytes # (Auto) 0.68, Eosinophils # (Auto ) 0.06, Basophils # (Auto) 0.02 04/10/17 18:42 Test 04/10/17 18:42 White Blood Count 5.98 K/uL (4.8-10.8) Red Blood Count 4.19 M/uL (4.2-5.4) Hemoglobin 12.9 g/dL (12.0-16.0) Hematocrit 37.5 % (37-47) Mean Corpuscular Volume 89.5 fL (80-100) Mean Corpuscular Hemoglobin 30.8 pg (25-34) Mean Corpuscular Hemoglobin Concent 34.4 g/dl (32-36) Platelet Count 120 K/uL (130-400) Mean Platelet Volume 8.6 fL (7.4-10.4) Neutrophils (%) (Auto) 57.6 % Lymphocytes (%) (Auto) 29.4 % Monocytes (%) (Auto) 11.4 % Eosinophils (%) (Auto) 1.0 % Basophils (%) (Auto) 0.3 % Neutrophils # (Auto) 3.44 K/uL (1.4-6.5) Lymphocytes # (Auto) 1.76 K/uL (1.2-3.4) Monocytes # (Auto) 0.68 K/uL (0.11-0.59) Eosinophils # (Auto) 0.06 K/uL (0-0.5) Basophils # (Auto) 0.02 K/uL (0-0.2) RDW Standard Deviation 50.7 fL (36.4-46.3) RDW Coefficient of Variation 15.5 % (11.5-14.5) Immature Granulocyte % (Auto) 0.3 % Immature Granulocyte # (Auto) 0.02 K/uL (0.00-0.02) Prothrombin Time 28.1 SECONDS (9.0-12.0) Prothromb Time International Ratio 2.7 (0.9-1.1) Activated Partial Thromboplast Time 38.0 SECONDS (21.0-31.0) Partial Thromboplastin Ratio 1.5 Anion Gap 4.0 mmol/L (3-11) Est Creatinine Clear Calc Drug Dose 66.9 ml/min Estimated GFR () 94.5 Estimated GFR (Non- 81.5 BUN/Creatinine Ratio 14.9 (10-20) Calcium Level 9.7 mg/dl (8.5-10.1) Laboratory results as reviewed by me. Medications Administered Medications (Trade) Dose Ordered Sig/Sade Route Start Time Stop Time Status Last Admin Dose Admin Morphine Sulfate (MoRPHine SULFATE INJ) 2 mg NOW STAT IV 04/10/17 18:30 04/10/17 18:32 DC 04/10/17 18:46 2 MG Ondansetron HCl (Zofran Inj) 4 mg NOW STAT IV 04/10/17 18:30 04/10/17 18:32 DC 04/10/17 18:46 4 MG ED Course 1825: The patient was evaluated in room A3. A complete history and physical exam was performed. 1829: Ordered Zofran Inj 4 mg IV, Morphine Sulfate 2 mg IV. 2025: I discussed the patient's case with Dr. Lemus- orthopedics. He states that she should be placed into a sling and he will follow up with her in his office. 2029: Upon reevaluation, the patient appeared to have improvement of her symptoms. I discussed tonight's findings with her and her family. I discussed narcotics usage with her and her family. They verbalized agreement of the treatment plan. The patient was discharged home. 2044: Ordered Oxycodone HCl 1 homepack PO. 2053: I reevaluated the patient and she states that she feels weak and dizzy. We are going to sit her up and reassess her. 2146: I reevaluated the patient and she states that she cannot even get up out of the bed. She will be observed here. 2158: I spoke with Dr. Gómez. We discussed the patient and her results. The patient will be further evaluated by him. Medical Decision This is an 86-year-old female who presents with injuries after mechanical fall. She is on Coumadin. Differential diagnosis includes shoulder dislocation, contusion, humeral fracture, shoulder separation, nasal fracture, intracranial hemorrhage, concussion. I did perform a limited focused review of portions of the patient's old chart on the electronic medical record. The patient was admitted to the hospital in September for multiple rib fractures and a head injury while on Coumadin. I did evaluate the patient as noted above. IV access was established. I did treat the patient with IV morphine 2 mg and Zofran for pain control. I did order and personally review the patient's x-rays as described above. She does have a humeral head fracture. I did discuss this with the orthopedic doctor on- call. He recommended a sling and follow up in the office. I did order and review the patient's blood work as noted in the electronic medical record. I did order a CT of the head, facial bones and cervical spine. I did review the images myself as well as the radiology report as described above. He has a nasal fracture. It is nondisplaced. I did discuss the test was with the patient and her family. I did arrange for discharge. Unfortunately the patient stated that she felt very weak and could not get up. She was set up in the bed and given something to drink. We did observe her for some time. She continued to state that she was weak and her daughter felt that she needed to be hospitalized. I therefore discussed the case with the hospitalist and casework supervisor. [place] Drug Monitoring Program Search Results: no issues identified Drug Monitoring Findings: No matching patient. Head Trauma GCS Score: 15 Medication Reconcilliation Current Medication List: was personally reviewed by me Blood Pressure Screening Patient's blood pressure: Elevated blood pressure Blood pressure disposition: Referred to PCP Consults Time Called: 2024 Consulting Physician: Dr. Lemus Returned Call: 2025 I discussed the patient's case with Dr. Lemus- orthopedics. He states that she should be placed into a sling and he will follow up with her in his office. Additional Consults: Time Called: 2147 Consulted Physician: Dr. Gómez Returned Call: 2158 Additional Comments: I spoke with Dr. Gómez. We discussed the patient and her results. The patient will be further evaluated by him. Impression Primary Impression: Fracture of head of left humerus Additional Impressions: Acute head injury Anticoagulated on Coumadin Fall Ambulatory dysfunction Scribe Attestation The scribe's documentation has been prepared under my direct and personally reviewed by me in its entirety. I confirm that the note above accurately reflects all work, treatment, procedures, and medical decision making performed by me. Departure Information Dispostion Being Evaluated By Hospitalist Prescriptions Oxycodone Ir (Roxicodone Ir) 5 Mg Tab 2.5 MG PO Q4H Y for Pain, #10 TAB Prov: Dar Alvarado M.D. 04/10/17 Referrals Any Gregg C.R.N.P (PCP) Forms HOME CARE DOCUMENTATION FORM, IMPORTANT VISIT INFORMATION Additional Instructions You have been examined and treated today on an emergency basis only. This is not a substitute for, or an effort to provide, complete comprehensive medical care. It is impossible to recognize and treat all injuries or illnesses in a single emergency department visit. It is therefore important that you follow up closely with your physician and Dr. Weir of orthopedics. Call as soon as possible for an appointment. Return for worsening symptoms or if you develop fever, vomiting, numbness or weakness on one side of your body, difficulties with your speech or walking, or any other concerning symptoms. Problem Qualifiers Primary Impression: Fracture of head of left humerus Encounter type: initial encounter Fracture type: closed Qualified Codes: S42.292A - Other displaced fracture of upper end of left humerus, initial encounter for closed fracture Additional Impressions: Acute head injury Encounter type: initial encounter Qualified Codes: S09.90XA - Unspecified injury of head, initial encounter Fall Encounter type: initial encounter Qualified Codes: W19.XXXA - Unspecified fall, initial encounter
[2017-04-10 23:56] VITALS: BP 133/82; PULSE 98; TEMP 36.2; O2SAT 96
[2017-04-11] MEDS: NSS + 20MEQ KCL 1000ML 1,000 ML IV SCH ×2 (01:02→13:00)
--- NOTE | 2017-04-11 07:34 | Family Medicine Progress Note ---
Progress Note Date of Service Apr 11, 2017. Subjective Pt evaluation today including: conversation w/ patient, physical exam, chart review, lab review, review of studies Found patient sitting up in bed, very pleasantly conversational, with only current c/o of feeling hungry with an upset stomach attributed to that. Says her shoulder hurts but otherwise her pain is under control. She wonders if she can get some coca cola syrup to help settle her stomach. She denies any CP, SOB , abd pain, PAIGE, or other acute c/o. Constitutional: No fever, No chills Respiratory: No cough, No shortness of breath Cardiovascular: No chest pain, No edema Abdomen: + nausea (more like hunger), No vomiting Musculoskeletal: + joint pain, + problem reported (shoulder pain) Medications Current Inpatient Medications Medications (Trade) Dose Ordered Sig/Sade Route Start Time Stop Time Status Last Admin Dose Admin Acetaminophen (Tylenol Tab) 650 mg Q4H PRN PO 04/10/17 22:15 05/10/17 22:14 Al Hydrox/Mg Hydrox/Simethicone (Maalox Max Susp) 15 ml Q4H PRN PO 04/10/17 22:15 05/10/17 22:14 Magnesium Hydroxide (Milk Of Magnesia Susp) 30 ml Q6H PRN PO 04/10/17 22:15 05/10/17 22:14 Polyethylene (Miralax Powder Packet) 17 gm DAILY PRN PO 04/10/17 22:15 05/10/17 22:14 Ondansetron HCl (Zofran Inj) 4 mg Q6H PRN IV 04/10/17 22:15 05/10/17 22:14 Morphine Sulfate (MoRPHine SULFATE INJ) 2 mg Q4H PRN IV 04/10/17 22:30 04/24/17 22:29 Docusate Sodium (coLACE CAP) 100 mg BID PO 04/11/17 09:00 05/11/17 08:59 Lisinopril (Zestril Tab) 20 mg DAILY PO 04/11/17 09:00 05/11/17 08:59 Metoprolol Succinate (Toprol Xl Tab) 12.5 mg DAILY PO 04/11/17 09:00 05/11/17 08:59 Oxycodone HCl (Roxicodone Immediate Rel Tab) 5 mg Q4H PRN PO 04/10/17 22:30 04/24/17 22:29 Simvastatin (Zocor Tab) 20 mg QAM PO 04/11/17 09:00 05/11/17 08:59 Acetaminophen (Tylenol Tab) 500 mg HS PO 04/11/17 21:00 05/11/17 20:59 Pantoprazole Sodium (Protonix Tab) 40 mg DAILY PRN PO 04/11/17 09:00 05/11/17 08:59 Potassium Chloride/Sodium Chloride 1,000 ml @ 80 mls/hr [id number] IV 04/11/17 00:30 05/11/17 00:29 04/11/17 01:02 80 MLS/HR Miscellaneous (Iv Fluids Completed) 1 ea PRN PRN N/A 04/10/17 23:45 04/10/18 23:44 Diphenhydramine HCl (Benadryl Cap) 25 mg HS PO 04/11/17 21:00 05/11/17 20:59 Objective Vital Signs Date Time Temp Pulse Resp B/P (MAP) Pulse Ox O2 Delivery O2 Flow Rate FiO2 04/10/17 23:56 36.2 98 18 133/82 (99) 96 Room Air 04/10/17 23:50 Room Air 04/10/17 23:50 Room Air 04/10/17 23:30 88 18 145/92 94 Room Air 04/10/17 20:50 84 18 119/67 95 Room Air 04/10/17 20:04 76 131/87 91 Room Air 04/10/17 18:39 37.1 80 151/88 96 Room Air Physical Exam General Appearance: no apparent distress Eyes: EOMI, + pertinent finding (bruising around bridge of nose and medial orbits) Neck: supple Respiratory/Chest: lungs clear, normal breath sounds Cardiovascular: regular rate, rhythm, no murmur Abdomen: normal bowel sounds, non tender, soft Neurologic/Psychiatric: alert, + pertinent finding (distal LUE sensation and produce department supervisor strength intact. left arm in sling) Laboratory Results 04/10/17 18:42 Red Blood Count 4.19, Mean Corpuscular Volume 89.5, Mean Corpuscular Hemoglobin 30.8, Mean Corpuscular Hemoglobin Concent 34.4, Mean Platelet Volume 8.6, Neutrophils (%) (Auto) 57.6, Lymphocytes (%) (Auto) 29.4, Monocytes (%) (Auto) 11.4, Eosinophils (%) (Auto) 1.0, Basophils (%) (Auto) 0.3, Neutrophils # (Auto ) 3.44, Lymphocytes # (Auto) 1.76, Monocytes # (Auto) 0.68, Eosinophils # (Auto ) 0.06, Basophils # (Auto) 0.02 04/10/17 18:42 Test 04/10/17 18:42 White Blood Count 5.98 K/uL (4.8-10.8) Red Blood Count 4.19 M/uL (4.2-5.4) Hemoglobin 12.9 g/dL (12.0-16.0) Hematocrit 37.5 % (37-47) Mean Corpuscular Volume 89.5 fL (80-100) Mean Corpuscular Hemoglobin 30.8 pg (25-34) Mean Corpuscular Hemoglobin Concent 34.4 g/dl (32-36) Platelet Count 120 K/uL (130-400) Mean Platelet Volume 8.6 fL (7.4-10.4) Neutrophils (%) (Auto) 57.6 % Lymphocytes (%) (Auto) 29.4 % Monocytes (%) (Auto) 11.4 % Eosinophils (%) (Auto) 1.0 % Basophils (%) (Auto) 0.3 % Neutrophils # (Auto) 3.44 K/uL (1.4-6.5) Lymphocytes # (Auto) 1.76 K/uL (1.2-3.4) Monocytes # (Auto) 0.68 K/uL (0.11-0.59) Eosinophils # (Auto) 0.06 K/uL (0-0.5) Basophils # (Auto) 0.02 K/uL (0-0.2) RDW Standard Deviation 50.7 fL (36.4-46.3) RDW Coefficient of Variation 15.5 % (11.5-14.5) Immature Granulocyte % (Auto) 0.3 % Immature Granulocyte # (Auto) 0.02 K/uL (0.00-0.02) Prothrombin Time 28.1 SECONDS (9.0-12.0) Prothromb Time International Ratio 2.7 (0.9-1.1) Activated Partial Thromboplast Time 38.0 SECONDS (21.0-31.0) Partial Thromboplastin Ratio 1.5 Anion Gap 4.0 mmol/L (3-11) Est Creatinine Clear Calc Drug Dose 66.9 ml/min Estimated GFR () 94.5 Estimated GFR (Non- 81.5 BUN/Creatinine Ratio 14.9 (10-20) Calcium Level 9.7 mg/dl (8.5-10.1) Assessment and Plan Ms. Doshi is an 86 yo female with PMH HTN, HPL, DVT/PE (on Coumadin), & frequent falls leading to multiple fractures who was admitted on [id number] for nasal and rib fractures along with other contusions s/p mechanical fall. Mechanical fall with resulting fractures/contusions - Denied CP, SOB, light-headedness or palpitations prior to falling. History of problems with dizziness and mobilization. - 05Dec XR left shoulder: Slightly impacted fracture humeral head and neck. No evidence dislocation. - 05Dec XR left humerus: Fracture humeral head and neck. - 05Dec Maxillofacial CT: Nondisplaced fracture tip nasal bones superimposed upon a pre-existing fracture - 05Dec CT head without contrast: No acute intracranial abnormality. Age- related and chronic change. - 05Dec CT cervical spine without contrast: No fractures within the cervical spine. Moderate degenerative change - Orthopedics consulted at time of admit. - PT/OT consulted at time of admit. - Already has an appt [facility] pending. - Tylenol prn, morphine prn, oxycodone prn for pain. - 06Dec: Will repeat CT head to make sure no interval evidence of bleed s/p her fall on coumadin. History of DVT/PE - As mentioned - she is highly prone to clot formation and will need to resume Coumadin when possible. Coumadi has been held at present due to her fall and acute fractures. HTN - cont Metoprolol 12.5 daily, Lisinopril 20 daily. Hyperlipidemia - cont simvastatin 20 daily. GI prophy - Inpatient Protonix 40 daily Code status: Full DVT prophy: See above history of DVT/PE. Disposition: Admitted overnight. Baseline lives at home with family. Likely need rehab at time of eventual hospital d/c. Resident Physician Supervision Note: I was present with Dr. Holder during the history and exam. I discussed the case with the resident and agree with the findings and plan as documented in the note. Any exceptions or clarifications are listed here: Await orthopedics consult. Also needs PT evaluation given recent fall and greater difficulty with balance given left arm sling Documented By: Flaquito Darby Resident Tracking Resident Involvement: Resident Care Provided Care Provided: Adult Hospital Medicine (inpt rounds)
[2017-04-11 08:13] VITALS: BP 117/79; PULSE 90; TEMP 36.9; O2SAT 94
[2017-04-11] MEDS: DOCUSATE SODIUM 100 MG CAP PO SCH ×2 (08:31→21:33)
[2017-04-11] MEDS: SIMVASTATIN 20 MG TAB PO SCH (08:32)
[2017-04-11] MEDS: METOPROLOL SUCC 25MG EXT REL TAB PO SCH (08:32)
[2017-04-11] MEDS: LISINOPRIL 20 MG TAB PO SCH (08:33)
[2017-04-11] MEDS ORDERED: PANTOprazole SOD 40 MG TAB PO PRN (09:00)
--- NOTE | 2017-04-11 10:25 | DIAGNOSTIC IMAGING REPORT ---
CT HEAD WITHOUT CONTRAST (CT) CLINICAL HISTORY: Head pain status post trauma. Patient on Coumadin. COMPARISON STUDY: 04/10/2017 TECHNIQUE: Axial CT of the brain is performed from the vertex to the skull base. IV contrast was not administered for this examination. A dose lowering technique was utilized adhering to the principles of ALARA. CT DOSE: 788.63 mGycm FINDINGS: There is a stable 9 mm suprasellar nodule containing a small calcification.. There is no CT evidence of acute cortical infarction. There is no evidence of midline shift. There is no acute hemorrhage. No calvarial fractures are visualized. There is an age-indeterminate nasal bone fracture. There are patchy white matter hypodensities likely on a small vessel basis. There is no evidence of pathologic ventricular dilatation. There is circumferential mucosal thickening within the left maxilla sinus. There are postsurgical changes of a medial antrectomy. IMPRESSION: No acute intracranial findings Electronically signed by: Mahesh Mojica M.D. 04/11/2017 10:23 AM Dictated Date/Time: 04/11/2017 10:20 AM
--- NOTE | 2017-04-11 15:10 | CONSULTATION REPORT ---
DATE OF CONSULTATION: 04/11/2017 CHIEF COMPLAINT: Left proximal humerus fracture. HISTORY OF PRESENT ILLNESS: Ebony is an 86-year-old female who suffered a fall yesterday, sustaining a proximal humerus fracture as well as a nasal fracture. She is really only from an orthopedic standpoint complaining of pain around her left shoulder area. She did have a bruise on her knee, she said, but really has not been having any pain with this knee. She has been able to walk or ambulate here in the hospital as well. She was placed in an arm sling and admitted by the hospitalist service. We were consulted for further orthopedic evaluation. Past medical history including surgeries, family history, social history, allergies, medications were all reviewed. Please refer to her admission H&P for completeness. PHYSICAL EXAMINATION: She is alert, oriented. She is in no distress. She has some ecchymosis around her eyes and her nasal area. She is sitting up eating at this time. She is not in an arm sling at this time. She has some bruising and mild swelling around the left shoulder area. Tender at the proximal humerus. No pain or tenderness around the elbow or wrist area. She is able to move her thumb and fingers appropriately, her left upper extremity, she is neurovascularly intact. We did look at her left knee today. She has some swelling and ecchymosis consistent with a hematoma. She has no tenderness to palpation around the knee. She is able to do a straight leg raise. No pain with motion of her knee today. IMAGING STUDIES: X-rays were reviewed of her shoulder and humerus, which show an impacted proximal humerus fracture. There is some angulation seen on the lateral view, but in acceptable alignment. IMPRESSION: 1. Left proximal humerus fracture. 2. Left knee hematoma. PLAN: Regarding the knee, she really is not having any pain with this. She does have a hematoma. She is able to do a straight leg raise, has been walking without pain or difficulty since the fall. No need for any further imaging of her knee at this time. This should resolve with time. She has been on Coumadin though, which likely contributed some to her swelling in the knee. Regarding her proximal humerus fracture, we would recommend continued conservative management at this time. Continue use of the arm sling, which we helped place back on her today in bed. She does not have a strap around the waist with a sling immobilizer, which we would recommend that she wears. We would recommend that she sleeps with head of the bed elevated and spend as much time in an upright seated position, and let her arm hang in the sling, allowing gravity to align the fracture. From an orthopedic standpoint, she could resume her Coumadin as well when okay with the hospitalist service. Treatment plan was discussed with her daughter today as well and we will plan to see her back in the office in about 2 weeks for repeat x-rays of the left shoulder. NIRAV
[2017-04-11 15:40] VITALS: BP 132/76; PULSE 86; TEMP 36.7; O2SAT 93
[2017-04-11] MEDS ORDERED: NURSING VERBAL MED ORDER ONE (18:30)
[2017-04-11] MEDS: ACETAMINOPHEN 500 MG TAB PO SCH (21:33)
[2017-04-11 22:59] VITALS: BP 134/84; PULSE 87; TEMP 37.2; O2SAT 92
[2017-04-12 06:56] LABS: INR 2.1 (0.9-1.1); PROTHROMBIN TIME (PATIENT) 21.4 SECONDS (9.0-12.0)
[2017-04-12 07:06] VITALS: BP 131/79; PULSE 83; TEMP 37; O2SAT 95
[2017-04-12 07:25] LABS: BUN/CREATININE RATIO 21.8 (10-20); CALCIUM 8.9 mg/dl (8.5-10.1); CREATININE 0.56 mg/dl (0.60-1.20); POTASSIUM 3.9 mmol/L (3.5-5.1)
--- NOTE | 2017-04-12 08:31 | Family Medicine Progress Note ---
Progress Note Date of Service Apr 12, 2017. Subjective Pt evaluation today including: conversation w/ patient, physical exam, chart review, lab review, review of studies Spoke with patient early this morning. Says she feels rather well overall, denying any ongoing significant pain at rest, but has some ongoing shoulder pain with arm movement. Denies any numbness/tingling distally in LUE. No other acute c/o. Constitutional: No fever, No chills Respiratory: No cough, No shortness of breath Cardiovascular: No chest pain, No edema Abdomen: No pain, No nausea Musculoskeletal: + problem reported (left shoulder pain) Medications Current Inpatient Medications Medications (Trade) Dose Ordered Sig/Sade Route Start Time Stop Time Status Last Admin Dose Admin Acetaminophen (Tylenol Tab) 650 mg Q4H PRN PO 04/10/17 22:15 05/10/17 22:14 04/11/17 08:31 650 MG Al Hydrox/Mg Hydrox/Simethicone (Maalox Max Susp) 15 ml Q4H PRN PO 04/10/17 22:15 05/10/17 22:14 Magnesium Hydroxide (Milk Of Magnesia Susp) 30 ml Q6H PRN PO 04/10/17 22:15 05/10/17 22:14 Polyethylene (Miralax Powder Packet) 17 gm DAILY PRN PO 04/10/17 22:15 05/10/17 22:14 Ondansetron HCl (Zofran Inj) 4 mg Q6H PRN IV 04/10/17 22:15 05/10/17 22:14 Morphine Sulfate (MoRPHine SULFATE INJ) 2 mg Q4H PRN IV 04/10/17 22:30 04/24/17 22:29 Docusate Sodium (coLACE CAP) 100 mg BID PO 04/11/17 09:00 05/11/17 08:59 04/11/17 21:33 100 MG Lisinopril (Zestril Tab) 20 mg DAILY PO 04/11/17 09:00 05/11/17 08:59 04/11/17 08:33 20 MG Metoprolol Succinate (Toprol Xl Tab) 12.5 mg DAILY PO 04/11/17 09:00 05/11/17 08:59 04/11/17 08:32 12.5 MG Oxycodone HCl (Roxicodone Immediate Rel Tab) 5 mg Q4H PRN PO 04/10/17 22:30 04/24/17 22:29 Simvastatin (Zocor Tab) 20 mg QAM PO 04/11/17 09:00 05/11/17 08:59 04/11/17 08:32 20 MG Acetaminophen (Tylenol Tab) 500 mg HS PO 04/11/17 21:00 05/11/17 20:59 04/11/17 21:33 500 MG Pantoprazole Sodium (Protonix Tab) 40 mg DAILY PRN PO 04/11/17 09:00 05/11/17 08:59 Miscellaneous (Iv Fluids Completed) 1 ea PRN PRN N/A 04/10/17 23:45 04/10/18 23:44 Diphenhydramine HCl (Benadryl Cap) 25 mg HS PO 04/11/17 21:00 05/11/17 20:59 04/11/17 21:33 25 MG Objective Vital Signs Date Time Temp Pulse Resp B/P (MAP) Pulse Ox O2 Delivery O2 Flow Rate FiO2 04/12/17 07:06 37.0 83 16 131/79 (96) 95 Room Air 04/12/17 00:40 Room Air 04/11/17 22:59 37.2 87 17 134/84 (101) 92 Room Air 04/11/17 16:20 Room Air 04/11/17 15:40 36.7 86 16 132/76 (94) 93 Room Air Physical Exam General Appearance: no apparent distress Eyes: EOMI ENT: + pertinent finding (contusions around bridge of nose and infraorbitally appear mildly improved) Neck: supple Respiratory/Chest: lungs clear, normal breath sounds, no respiratory distress Cardiovascular: regular rate, rhythm, no murmur, + pertinent finding (left fingertip cap refill < 2 seconds) Abdomen: normal bowel sounds, non tender, soft Extremities: + pertinent finding (left shoulder in ortho sling) Neurologic/Psychiatric: + pertinent finding (distal LUE strength/sensation intact) Laboratory Results 04/12/17 06:34 Test 04/12/17 06:34 Prothrombin Time 21.4 SECONDS (9.0-12.0) Prothromb Time International Ratio 2.1 (0.9-1.1) Anion Gap 6.0 mmol/L (3-11) Est Creatinine Clear Calc Drug Dose 77.6 ml/min Estimated GFR () 99.2 Estimated GFR (Non- 85.6 BUN/Creatinine Ratio 21.8 (10-20) Calcium Level 8.9 mg/dl (8.5-10.1) Assessment and Plan Ms. 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 Mechanical fall with resulting fractures/contusions - Due to being on coumadin, had initial CT head, then repeat approx 12 hours later to eval for interval bleed, both of which noted no acute findings. - Nasal fracture noted on CT scanning. Had some initial epistaxis that resolved during admission. - Left humeral head and neck fracture seen on x-rays. Ortho consulted, please see their above recommendations. Sling provided here. She remained distally [id number] intact on serial exams. - As inpatient, recedived Tylenol prn, morphine prn, oxycodone prn for pain. Overall pain was well-controlled. - Patient has an appointment with a [facility] balance clinic, which her daughter is working on rescheduling depending on ultimate placement. Recommended patient still keep the appointment in general for further eval of her falls. 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 Initially held coumadin prior to ortho eval. No planned acute surgeries. Restarted prior home dose of 3 mg daily. HTN - Was continued on her home Metoprolol 12.5 daily, Lisinopril 20 daily. Hyperlipidemia - Was continued on her home simvastatin 20 daily. GI prophy - Inpatient Protonix 40 daily Code status: Full DVT prophy: See above history of DVT/PE. Disposition: Baseline lives at home with family. Working on placement. - OT consult: Recommended 24/7 care, theoretically at home if resources permit. Discussed same with patient's daughter, then cannot support, advised for rehab at [facility] or [facility]. - PT consult: "Recommend acute inpatient rehab as son reports he & his sister are unable to provide 24/7 hour care." Resident Physician Supervision Note: I was present with the resident during the history and exam. I discussed the case with the resident and agree with the findings and plan as documented in the note. Documented By: Flaquito Darby Resident Tracking Resident Involvement: Resident Care Provided Care Provided: Adult Hospital Medicine (inpt rounds)
[2017-04-12] MEDS: METOPROLOL SUCC 25MG EXT REL TAB PO SCH (08:46)
[2017-04-12] MEDS: LISINOPRIL 20 MG TAB PO SCH (08:46)
[2017-04-12] MEDS: SIMVASTATIN 20 MG TAB PO SCH (08:46)
[2017-04-12] MEDS: DOCUSATE SODIUM 100 MG CAP PO SCH ×2 (08:46→20:55)
--- NOTE | 2017-04-12 09:34 | Discharge Summary ---
Discharge Summary Date of Service Apr 12, 2017. Discharge Summary Admission Date: Apr 10, 2017 at 22:18 Discharge Date: Apr 13, 2017 Discharge Disposition: Rehab Principal Diagnosis: (1) Left humeral head and neck fracture (2) Nasal fracture Problems/Secondary Diagnoses: - HTN - Hyperlipidemia - History of DVT/PE Immunizations: Have You Had Influenza Vaccine: Yes Influenza Vaccine Date: Mar 07, 2011 History of Tetanus Vaccine?: No History of Pneumococcal: Yes Pneumococcal Date: Feb 20, 2008 History of Hepatitis B Vaccine: No Procedures: [id number] Left shoulder x-ray 2-view Slightly impacted fracture humeral head and neck. No evidence dislocation. [id number] CT facial bones without contrast 1. Nondisplaced fracture tip nasal bones superimposed upon a pre-existing fracture. 2. No additional acute abnormality is identified. [id number] Left humerus x-ray 2-view Fracture humeral head and neck. Remainder of the humerus is unremarkable. There is no evidence for soft tissue swelling. [id number] CT head without contrast The paranasal sinuses and mastoid air cells are clear. The calvarium and skull base are intact. The ventricles and sulci are within normal limits. There is no mass, hematoma, midline shift, or acute infarct. Impression: No acute intracranial abnormality. Age-related and chronic change. [id number] CT cervical spine without contrast Moderate degenerative change. No evidence for an acute compression deformity. Posterior elements are intact. Degenerative changes lateral facets. [id number] CT head without contrast No acute intracranial findings Consultations: Per orthopedic surgery consult on 11Apr2017: - Regarding the knee, she really is not having any pain with this. She does have a hematoma. She is able to do a straight leg raise, has been walking without pain or difficulty since the fall. No need for any further imaging of her knee at this time. This should resolve with time. - Regarding her proximal humerus fracture, we would recommend continued conservative management at this time. - Continue use of the arm sling, which we helped place back on her today in bed. She does not have a strap around the waist with a sling immobilizer, which we would recommend that she wears. - We would recommend that she sleeps with head of the bed elevated and spend as much time in an upright seated position, and let her arm hang in the sling, allowing gravity to align the fracture. - From an orthopedic standpoint, she could resume her Coumadin as well when okay with the hospitalist service. - Treatment plan was discussed with her daughter today as well and we will plan to see her back in the office in about 2 weeks for repeat x-rays of the left shoulder. Medication Reconciliation Continued Medications: Acetaminophen/Diphenhydramine (Tylenol Pm) 500 Mg/25 Mg Tab 1 TAB PO HS, TAB Aspirin (Aspirin Ec) 81 Mg Tab 81 MG PO QAM Cholecalciferol (Vitamin D3) 1,000 Unit Cap 1000 INTER.UNIT PO DAILY Docusate Sodium (Colace) 100 Mg Cap 1 CAP PO BID for 30 Days, #60 CAP Lisinopril (Zestril) 20 Mg Tab 20 MG PO DAILY, TAB Metoprolol Succinate (Metoprolol Succinate ER) 25 Mg Tabcr 12.5 MG PO DAILY Omeprazole (Prilosec) 20 Mg Capcr 20 MG PO DAILY PRN for Heartburn, CAP Simvastatin (Zocor) 20 Mg Tab 20 MG PO QAM Warfarin Sodium (Warfarin Sodium) 3 Mg Tab 3 MG PO DAILY Discontinued Medications: Oxycodone Ir (Roxicodone Ir) 5 Mg Tab 2.5 MG PO Q4H PRN for Pain, #10 TAB Discharge Exam Review of Systems: Constitutional: No fever, No chills Respiratory: No cough, No shortness of breath Cardiovascular: No chest pain Abdomen: No nausea, No vomiting, No diarrhea Musculoskeletal: + problem reported (LUE pain ) Neurologic: No paralysis, No weakness Physical Exam: General Appearance: WD/WN, no apparent distress Eyes: EOMI ENT: + pertinent finding (Improving contusions at bridge of nose, iinner quadrants of (B) orbits, and left maxillary area) Neck: supple Respiratory/Chest: lungs clear, normal breath sounds, no respiratory distress Cardiovascular: regular rate, rhythm, no murmur Abdomen / GI: normal bowel sounds, non tender, soft, + abnormal rectal exam Extremities: + pertinent finding (LUE in sling. Distally hand/wrist full ROM with normal strength & sensation. ) Neurologic/Psychiatric: alert, normal mood/affect Skin: + pertinent finding (large contusion in left upper inner arm) Hospital Course Per HPI at time of admission Date & Time of Service: Apr 10, 2017 at 21:46 Chief Complaint: Fall, Left Shoulder Pain, Nose Bleed Primary Care Physician: Any Gregg C.R.N.P History of Present Illness Source: patient 86 y/o F Hx HTN, HPL, DVT/PE - on Coumadin, frequent falls leading to multiple fractures. The pt was admitted 09/20 following a fall where she has sustained nasal bone and rib fractures. Present following an additional fall onto her L side. She sustained trauma to her L arm and face. Imaging is consistent with a L humeral head and neck fracture and nasal bone fractures. She describes the fall as mechanical and denies preceding symptoms. She denies CP, SOB, light-headedness or palpitations prior to falling. She cannot safely mobilize at present and will require placement in rehab in addition to evaluation by the orthopedist. Discharge summary on 13Apr2017 Ms. 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 Mechanical fall with resulting fractures/contusions - Due to being on coumadin, had initial CT head, then repeat approx 12 hours later to eval for interval bleed, both of which noted no acute findings. - Nasal fracture noted on CT scanning. Had some initial epistaxis that resolved during admission. - Left humeral head and neck fracture seen on x-rays. Ortho consulted, please see their above recommendations. Sling provided here. She remained distally [id number] intact on serial exams. - As inpatient, received Tylenol prn, morphine prn, oxycodone prn for pain. Overall pain was well-controlled. - Patient has an appointment with a [facility] balance clinic, which her daughter is working on rescheduling depending on ultimate placement. Recommended patient still keep the appointment in general for further eval of her falls. 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 Initially held coumadin prior to ortho eval. No planned acute surgeries. Restarted prior home dose of 3 mg daily. INR on admit was 2.7, on restart of coumadin INR was 1.7. HTN - Was continued on her home Metoprolol 12.5 daily, Lisinopril 20 daily. Hyperlipidemia - Was continued on her home simvastatin 20 daily. Resident Physician Supervision Note: I was present with Dr. Holder during the history and exam. I discussed the case with the resident and agree with the findings and plan as documented in the note. Documented By: Flaquito Darby Total Time Spent: Less than 30 minutes This includes examination of the patient, discharge planning, medication reconciliation, and communication with other providers. Discharge Instructions Please refer to the electronic Patient Visit Report (Discharge Instructions) for additional information. Additional Copies To Any Gregg C.R.N.P
[2017-04-12 14:53] VITALS: BP 142/84; PULSE 96; TEMP 36.6; O2SAT 96
[2017-04-12] MEDS ORDERED: WARFARIN SOD 3 MG TAB PO SCH (16:00)
[2017-04-12 16:14] LABS: INR 1.7 (0.9-1.1); PROTHROMBIN TIME (PATIENT) 17.3 SECONDS (9.0-12.0)
[2017-04-12] MEDS: ACETAMINOPHEN 500 MG TAB PO SCH (20:55)
[2017-04-12 23:07] VITALS: BP 135/78; PULSE 90; TEMP 37; O2SAT 96
[2017-04-13 07:50] VITALS: BP 132/82; PULSE 97; TEMP 37; O2SAT 95
[2017-04-13 08:32] VITALS: BP 137/84; PULSE 118
[2017-04-13] MEDS: LISINOPRIL 20 MG TAB PO SCH (08:32)
[2017-04-13] MEDS: SIMVASTATIN 20 MG TAB PO SCH (08:32)
[2017-04-13] MEDS: METOPROLOL SUCC 25MG EXT REL TAB PO SCH (08:32)
[2017-04-13] MEDS: DOCUSATE SODIUM 100 MG CAP PO SCH (08:32)
--- NOTE | 2017-04-13 08:36 | Family Medicine Progress Note ---
Progress Note Date of Service Apr 13, 2017. Medications Current Inpatient Medications Medications (Trade) Dose Ordered Sig/Sade Route Start Time Stop Time Status Last Admin Dose Admin Acetaminophen (Tylenol Tab) 650 mg Q4H PRN PO 04/10/17 22:15 05/10/17 22:14 04/11/17 08:31 650 MG Al Hydrox/Mg Hydrox/Simethicone (Maalox Max Susp) 15 ml Q4H PRN PO 04/10/17 22:15 05/10/17 22:14 Magnesium Hydroxide (Milk Of Magnesia Susp) 30 ml Q6H PRN PO 04/10/17 22:15 05/10/17 22:14 04/12/17 16:06 30 ML Polyethylene (Miralax Powder Packet) 17 gm DAILY PRN PO 04/10/17 22:15 05/10/17 22:14 Ondansetron HCl (Zofran Inj) 4 mg Q6H PRN IV 04/10/17 22:15 05/10/17 22:14 Morphine Sulfate (MoRPHine SULFATE INJ) 2 mg Q4H PRN IV 04/10/17 22:30 04/24/17 22:29 Docusate Sodium (coLACE CAP) 100 mg BID PO 04/11/17 09:00 05/11/17 08:59 04/12/17 08:46 100 MG Lisinopril (Zestril Tab) 20 mg DAILY PO 04/11/17 09:00 05/11/17 08:59 04/13/17 08:32 20 MG Metoprolol Succinate (Toprol Xl Tab) 12.5 mg DAILY PO 04/11/17 09:00 05/11/17 08:59 04/13/17 08:32 12.5 MG Oxycodone HCl (Roxicodone Immediate Rel Tab) 5 mg Q4H PRN PO 04/10/17 22:30 04/24/17 22:29 Simvastatin (Zocor Tab) 20 mg QAM PO 04/11/17 09:00 05/11/17 08:59 04/13/17 08:32 20 MG Acetaminophen (Tylenol Tab) 500 mg HS PO 04/11/17 21:00 05/11/17 20:59 04/11/17 21:33 500 MG Pantoprazole Sodium (Protonix Tab) 40 mg DAILY PRN PO 04/11/17 09:00 05/11/17 08:59 Miscellaneous (Iv Fluids Completed) 1 ea PRN PRN N/A 04/10/17 23:45 04/10/18 23:44 Diphenhydramine HCl (Benadryl Cap) 25 mg HS PO 04/11/17 21:00 05/11/17 20:59 04/12/17 20:57 25 MG Warfarin Sodium (Coumadin Tab) 3 mg DAILY@16 PO 04/12/17 16:00 05/12/17 15:59 04/12/17 16:07 3 MG Objective Vital Signs Date Time Temp Pulse Resp B/P (MAP) Pulse Ox O2 Delivery O2 Flow Rate FiO2 04/13/17 07:50 37.0 97 20 132/82 (99) 95 Room Air 04/12/17 23:40 Room Air 04/12/17 23:07 37.0 90 18 135/78 (97) 96 Room Air 04/12/17 16:00 Room Air 04/12/17 14:53 36.6 96 18 142/84 (103) 96 Room Air Laboratory Results Test 04/12/17 15:34 Prothrombin Time 17.3 SECONDS (9.0-12.0) Prothromb Time International Ratio 1.7 (0.9-1.1) Resident Tracking Resident Involvement: Resident Care Provided Care Provided: Adult Hospital Medicine (inpt rounds)
[2017-04-13 09:20] VITALS: O2SAT 95
[2017-04-13 12:16] VITALS: BP 137/84; PULSE 118; TEMP 37; O2SAT 95
--- NOTE | 2017-04-13 12:56 | Discharge Instructions ---
Discharge Instructions Date of Service Apr 13, 2017. Admission Reason for Admission: Humeral Fracture, Nasal Bone Fracture Discharge Discharge Diagnosis / Problem: (1) Fracture of your left arm (humeral head & neck) (2) Nasal fracture Discharge Goals Goal(s): Decrease discomfort, Improve function, Increase independence, Learn about illness Activity Recommendations Activity Limitations: per Instructions/Follow-up section During your hospitalization, you were diagnosed with fractures of your left upper arm (the humerus bone) as well as a fracture of your nose. Because of some of the prior difficulties with balance, along with how you are on a blood thinner for your history of blood clots, there is concern that you may fall again before your arm and nose have fully healed. Therefore, it was recommended you go to an acute rehabilitation facility to help get you stronger and, ultimately, back to your own home. Please follow the instructions of the medical staff at [facility] regarding the use of the sling for your arm, related exercises, and lifting restrictions. The orthopedic surgeons would like to see you in their office around the two- week prince for follow-up, roughly around April 24. They recommended no need for surgery initially and that you can restart your coumadin, which was done at the same dose as prior here in the hospital. Because you are going to [facility], please let their staff know if you have any worsening pain, any new numbness or problems with your left arm, any new nosebleeds or problems bleeding, or any other medical concerns that may develop. . Current Hospital Diet Patient's current hospital diet: Regular Diet Discharge Diet Recommended Diet: Regular Diet Pending Studies Studies pending at discharge: no Medical Emergencies . Who to Call and When: Medical Emergencies: If at any time you feel your situation is an emergency, please call 911 immediately. . Non-Emergent Contact Non-Emergency issues call your: Primary Care Provider . . "Provider Documentation" section prepared by Nithin Holder. . VTE Core Measure Inpt VTE Proph given/why not?: Warfarin (Coumadin), SCD's
== END 2017-04-13 14:00 ==
LOC: EDBD 18:20 → C.EDA 18:21 → UNDOADMOB 22:18 → C.MSN 22:18 → ENRESERV 22:37 → C.MSW 04-11 10:27
PROVIDERS: ADMIT Internal Medicine; ATTEND Family Medicine
DX: S42.202A Unspecified fracture of upper end of left humerus, initial encounter for closed fracture (principal); S02.2XXA Fracture of nasal bones, initial encounter for closed fracture; W19.XXXA Unspecified fall, initial encounter; I10 Essential (primary) hypertension; E78.5 Hyperlipidemia, unspecified; I48.91 Unspecified atrial fibrillation; Z86.718 Personal history of other venous thrombosis and embolism; Z79.82 Long term (current) use of aspirin; Z79.01 Long term (current) use of anticoagulants; Z86.000 Personal history of in-situ neoplasm of breast; Z88.1 Allergy status to other antibiotic agents; Z80.9 Family history of malignant neoplasm, unspecified; Z82.49 Family history of ischemic heart disease and other diseases of the circulatory system

== ENCOUNTER → 2017-05-04 | Outpatient (CLI) | payer OTHER ==
[~2017-05-04] MED LIST changes: +ASPI81TA28 PO; -VITA10004 PO
[2017-05-04 12:47] LABS: BASO % 0.2 %; BASO ABS # 0.01 K/uL (0-0.2); EOS % 0.9 %; EOS ABS # 0.04 K/uL (0-0.5); HEMATOCRIT 39.5 % (37-47); HEMOGLOBIN 13.1 g/dL (12.0-16.0); IG# 0.01 K/uL (0.00-0.02); LYMPH % 27.1 %; LYMPH ABS # 1.16 K/uL (1.2-3.4); MEAN CELL VOLUME 91.9 fL (80-100); MEAN CORPUSCULAR HEMOGLOBIN 30.5 pg (25-34); MEAN CORPUSCULAR HGB CONC 33.2 g/dl (32-36); MEAN PLATELET VOLUME 8.9 fL (7.4-10.4); MONO % 9.1 %; MONO ABS # 0.39 K/uL (0.11-0.59); NEUT % 62.5 %; NEUT ABS # 2.67 K/uL (1.4-6.5); PLATELET COUNT 193 K/uL (130-400); RED CELL DISTRIBUTION WIDTH CV 16.9 % (11.5-14.5); RED CELL DISTRIBUTION WIDTH SD 56.8 fL (36.4-46.3); WHITE BLOOD COUNT 4.28 K/uL (4.8-10.8)
== END | disposition home or self-care (01) ==
LOC: C.LABPVFM 09:34
PROVIDERS: ATTEND Nurse Practitioner
DX: R00.0 Tachycardia, unspecified (principal)

== ENCOUNTER → 2017-08-21 | Outpatient (CLI) | payer OTHER ==
[2017-08-21 13:33] LABS: BLOOD UREA NITROGEN 9 mg/dl (7-18); CALCIUM 9.7 mg/dl (8.5-10.1); CARBON DIOXIDE 22 mmol/L (21-32); CREATININE 0.73 mg/dl (0.60-1.20); GLUCOSE 140 mg/dl (70-99); POTASSIUM 3.9 mmol/L (3.5-5.1); SODIUM 137 mmol/L (136-145)
[2017-08-21 13:37] LABS: CHOLESTEROL 123 mg/dl (0-200); LDL CHOLESTEROL CALCULATED 62 mg/dl
== END | disposition home or self-care (01) ==
LOC: C.LABPVFM 09:58
PROVIDERS: ATTEND Nurse Practitioner
DX: I10 Essential (primary) hypertension (principal); E78.5 Hyperlipidemia, unspecified

== ENCOUNTER 2019-04-16 19:12 | Inpatient (IN) ==
[2019-04-16] MEDS ORDERED: dilTIAZem HCl 5 MG/ML 5 ML VIAL IV STA (19:18)
--- NOTE | 2019-04-16 19:26 | Emergency Department Note ---
Entered by Terri Mills acting as a scribe for History of Present Illness General Chief complaint: Tachycardia Stated complaint: TACHYCARDIA Source: patient and EMS Mode of arrival: EMS History of Present Illness Onset (ago): hour(s) (just prior to arrival) Location: chest Severity: similar to prior episodes Pain Consistency: + other (episode) Quality: + other (palpitations) The patient is a 88 year old female who presents to the Emergency Room with complaints of an episode of palpitations that began just prior to arrival. The patient states that she was sitting on her couch when these began. Per EMS, the patient's heart rate was in the 170s upon their arrival. The patient states that this is similar to prior episodes of AFib for her, and states that she is on E liquis. The patient states that she also takes Metoprolol. Home Medications Home Medications Medication Instructions Recorded Confirmed Type aspirin 81 mg PO QAM 06/30/18 04/16/19 History diphenhydramine-acetaminophen 2 tab PO HS 07/01/18 04/16/19 History [Tylenol PM Extra Strength] lisinopril 20 mg PO DAILY 11/28/18 04/16/19 History apixaban 2.5 mg tablet 2.5 mg PO Q12H #180 tab 12/30/18 04/16/19 Rx cholecalciferol (vitamin D3) 400 400 units PO DAILY 02/20/19 04/16/19 History unit capsule cod liver oil 1 cap PO BID 04/16/19 04/16/19 History levothyroxine 75 mcg PO DAILY 04/16/19 04/16/19 History metoprolol succinate 12.5 mg DAILY 04/16/19 04/16/19 History simvastatin 20 mg PO DAILY 04/16/19 04/16/19 History Allergies Allergy/AdvReac Type Severity Reaction Status Date / Time amoxicillin Allergy Intermediate RASH; Verified 02/20/19 14:57 PURPLE SKIN pneumococcal 7-valent Allergy Intermediate Rash Verified 02/20/19 14:57 conjugate to [From Prevnar] cephalexin Allergy Mild rash Verified 02/20/19 14:57 amiodarone Allergy Unknown RASH Verified 02/20/19 14:57 pneumococcal vaccine Allergy Unknown Verified 02/20/19 14:57 [From Prevnar 13 (PF)] Past Med/Surg History Medical History Anxiety 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 Coronary artery disease "MILD" PER 2012 CARDIAC CATH DVT (deep venous thrombosis) GERD (gastroesophageal reflux disease) CONTROLLED History of atrial fibrillation (Chronic) PAROXYSMAL- ON WARFARIN HTN (hypertension) (Chronic) Hyperlipidemia Osteoporosis Surgical History History of appendectomy History of cardiac cath 2012= NO STENT History of cataract surgery BILATERAL History of colonoscopy History of endoscopic sinus surgery History of herniorrhaphy LEFT INGUINAL HERNIA REPAIR History of hysterectomy MELANIE WITH BSO History of mastectomy RIGHT WITH LYMPH NODE REMOVAL Family History Father Myocardial infarction Other Family history non-contributory Lung cancer Social History Preferred Language: Sri Lankan Communication Ability: Effective Visual Impairment: No Limitations Hearing Ability: Normal Cooker Process Cheese Required: No Beliefs That Will Affect Care: None Current Living Situation: Family Feels Safe at Home: Yes Smoking Status: Never smoker Second Hand Exposure: No ; Hx Alcohol Use: No Hx Substance Use: No Seatbelt Use: always Review of Systems See HPI for pertinent positives & negatives. and A total of 10 systems reviewed and were otherwise negative Physical Exam Vital Signs Vital Signs - 24 hr 04/16/19 19:26 04/16/19 19:46 04/16/19 19:53 Temperature 37.2 C Temperature Source Oral Pulse Rate 146 H 117 H Pulse Rate [Apical] 115 H Pulse Rate from SpO2 Sensor 124 H Pulse Rhythm Irregular Respiratory Rate 25 H 20 18 Respiratory Effort / Characteristics Non-Labored Spontaneous Non-Labored Spontaneous Respiratory Depth Normal Normal Blood Pressure 135/102 H 171/71 H Blood Pressure [Left Arm] 171/71 H Blood Pressure Mean 113 99 Blood Pressure Mean [Left Arm] 104 Blood Pressure Position Sitting Blood Pressure Position [Left Arm] Lying Pulse Oximetry 93 91 91 Oxygen Delivery Method Room Air Room Air Sepsis Recent Fever Within 48 Hours No Sepsis Action Taken by Nursing No Action Required 04/16/19 20:00 04/16/19 21:00 Temperature Temperature Source Pulse Rate 112 H 133 H Pulse Rate [Apical] Pulse Rate from SpO2 Sensor 112 H 130 H Pulse Rhythm Respiratory Rate 27 H 20 Respiratory Effort / Characteristics Respiratory Depth Blood Pressure 109/83 111/89 Blood Pressure [Left Arm] Blood Pressure Mean 89 96 Blood Pressure Mean [Left Arm] Blood Pressure Position Blood Pressure Position [Left Arm] Pulse Oximetry 92 92 Oxygen Delivery Method Sepsis Recent Fever Within 48 Hours Sepsis Action Taken by Nursing CONSTITUTIONAL/VITAL SIGNS: Reviewed / noted above. GENERAL: Non-toxic in appearance. INTEGUMENTARY: Warm, dry, and [place]. HEAD: Normocephalic. EYES: without scleral icterus or trauma. ENT/OROPHARYNX: clear and moist. LYMPHADENOPATHY/NECK: Is supple without lymphadenopathy or meningismus. RESPIRATORY: Lungs clear and equal. CARDIOVASCULAR: Tachycardic rate and rhythm. GI/ABDOMEN: Soft and nontender. No organomegaly or pulsatile mass. No rebound or guarding. Normal bowel sounds. EXTREMITIES: Warm and well perfused. BACK: No CVA tenderness. NEUROLOGICAL: Intact without focal deficits. PSYCHIATRIC: normal affect. MUSCULOSKELETAL: Normally developed with good muscle tone. Course Course 1914: Past medical records reviewed. The patient was evaluated in room C12B. A complete history and physical exam was performed. 2022: I checked on and updated the patient on all results. She is in agreement with the treatment plan. 2108: I discussed the case with Dr. [facility] Hospitalist who accepts the patient for further evaluation. Administered Medications Diltiazem HCl 125 mg/ Dextrose 125 mls @ 8 mls/hr IV .[id number] [facility]; Protocol Stop: 05/16/19 19:29 Last Admin: 04/16/19 19:48 Dose: 8 mg/hr, 8 mls/hr Documented by: [id number] Cosigned by: [id number] Discontinued Medications Diltiazem HCl (Cardizem) 20 mg IV NOW STA Stop: 04/16/19 19:19 Last Admin: 04/16/19 19:34 Dose: 20 mg Documented by: [id number] Cosigned by: [id number] Sodium Chloride (Nss) 500 mls @ 999 mls/hr IV .Q31M ABEL Stop: 04/16/19 20:00 Last Infusion: 04/16/19 20:07 Dose: 0 mls/hr Documented by: [id number] Admin: 04/16/19 19:34 Dose: 999 mls/hr Documented by: [id number] Critical Care Time Critical Care Time: Yes Total Critical Care Time: 35 I have personally spent 35 minutes of critical care time in the direct management of this patient. This includes bedside care, interpretation of diagnostic studies, and testing, discussion with consultants, patient, and family members, and other required patient management activities. This 35 minutes is in excess of all separately billable procedures. Medical Decision Making Differential Diagnosis Differential diagnosis includes etiologies such as premature contractions, electrolyte abnormality, cardiac dysrhythmia, thyroid dysfunction, pulmonary embolism, infection, gastrointestinal, as well as others were entertained. Medical Records Attestation: I reviewed the patient's medical records. Home Medications Current Medication List: was personally reviewed by me Laboratory Data Attestation: I reviewed the patient's lab results. Result diagrams: 04/16/19 19:49 04/16/19 19:50 Lab Results 04/16/19 04/16/19 04/16/19 Range/Units 19:49 19:49 19:50 WBC 6.83 (4.8-10.8) K/uL RBC 4.67 (4.2-5.4) M/uL Hgb 14.0 (12.0-16.0) g/dL Hct 41.8 (37-47) % MCV 89.5 (80-100) fL MCH 30.0 (25-34) pg MCHC 33.5 (32-36) g/dL RDW Std Deviation 47.3 H (36.4-46.3) fL RDW Coeff of Sher 14.6 H (11.5-14.5) % Plt Count 147 (130-400) K/uL MPV 9.1 (7.4-10.4) fL Immature Gran % (Auto) 0.3 % Neut % (Auto) 77.5 % Lymph % (Auto) 12.6 % [place] % (Auto) 8.9 % Eos % (Auto) 0.6 % Baso % (Auto) 0.1 % Immature Gran # (Auto) 0.02 (0.00-0.02) K/uL Neut # (Auto) 5.29 (1.4-6.5) K/uL Lymph # (Auto) 0.86 L (1.2-3.4) K/uL [place] # (Auto) 0.61 H (0.11-0.59) K/uL Eos # (Auto) 0.04 (0-0.5) K/uL Baso # (Auto) 0.01 (0-0.2) K/uL PT 10.3 (9.0-12.0) Seconds INR 1.0 (0.9-1.1) APTT 26.2 (21.0-31.0) Seconds PTT Ratio 1.0 Sodium 136 (136-145) mmol/L Potassium 3.4 L (3.5-5.1) mmol/L Chloride 106 (98-107) mmol/L Carbon Dioxide 24 (21-32) mmol/L Anion Gap 6.0 (3-11) BUN 10 (7-18) mg/dl Creatinine 0.58 L (0.6-1.2) mg/dl Est Cr Clr Drug Dosing 71.2 ml/min Est GFR ( Amer) 96.7 Est GFR (Non-Af Amer) 83.5 BUN/Creatinine Ratio 17.1 (10-20) Glucose 133 H (70-99) mg/dl Calcium 9.3 (8.5-10.1) mg/dl Total Bilirubin 0.9 (0.2-1) mg/dl AST 17 (15-37) U/L ALT 20 (12-78) U/L Alkaline Phosphatase 117 (45-117) U/L Troponin I < 0.015 (0-0.045) ng/ml Total Protein 8.0 (6.4-8.2) gm/dl Albumin 3.2 L (3.4-5.0) gm/dl Globulin 4.8 H (2.5-4.0) gm/dl Albumin/Globulin Ratio 0.7 L (0.9-2) Lipase 112 (73-393) U/L Imaging Data Radiologist's Impression: Radiology results as stated below per my review and the radiologist's interpretation: XR chest 1V portable HISTORY: Atypical Chest Pain COMPARISON: Chest 04/15/2015. FINDINGS: No pneumothorax. The heart is mildly enlarged. This has progressed. Interval progression of the diffuse interstitial and vascular thickening co nsistent with mild pulmonary edema. Surgical clips within the right axilla. Small bilateral pleural effusions. Old, healed left humeral neck fracture. IMPRESSION: Interval development of mild interstitial pulmonary edema, mild cardiomegaly, and small bilateral pleural effusions. Electronically signed by: Harsh Mendez M.D. 04/16/2019 8:55 PM ECG Data Attestation: I personally reviewed and interpreted this ECG as follows: Indication: + palpitations Rate (beats per minute): 137 Rhythm: + atrial fibrillation ECG ST segments: no ST elevation ECG Findings: no PACs and no PVCs Blood Pressure Blood Pressure Findings: Normal blood pressure MDM Narrative This is a 88-year-old female who presents to the ED with a chief complaint of palpitations. The patient states that her heart was racing earlier today. She was picked up by EMS. EMS sent in a twelve-lead EKG showing that she is in rapid A. fib with heart rates in the 140s to 170s. She was given IV Cardizem 15 mg by EMS. This did improve her symptoms some and decreased her heart rate into the 140 range. The patient on my exam is in no distress. She does have an elevated heart rate that appears to be irregular. She is chronically on Taylor long. The patient's CBC and chemistry panel was unremarkable. Troponin was negative. Chest x-ray revealed some mild pulmonary edema changes. The patient was given IV Cardizem bolus 20 mg as well as an IV Cardizem drip. Her heart rate did stabilize in the 110s to 120s and her symptoms improved. She will be seen by the hospitalist for further evaluation and care. Impression & Plan Atrial fibrillation with RVR Discharge Plan Visit Data Chief Complaint: Tachycardia Stated Complaint: TACHYCARDIA ED Provider: Yoan Lieberman Discharge Problem: Atrial fibrillation with RVR Patient Disposition: Being Evaluated by Hospitalist Forms Stand Alone Forms: My [facility] Prescriptions Prescriptions: No Action Eliquis 2.5 mg tablet 2.5 mg PO Q12H Qty: 180 RF: 3 cholecalciferol (vitamin D3) 400 unit capsule 400 units PO DAILY RF: 0 diphenhydramine-acetaminophen [Tylenol PM Extra Strength] 25-500 mg Tablet 2 tab PO HS RF: 0 cod liver oil 1 cap PO BID RF: 0 levothyroxine 75 mcg tablet 75 mcg PO DAILY RF: 0 simvastatin 20 mg tablet 20 mg PO DAILY RF: 0 metoprolol succinate 25 mg tablet extended release 24 hr 12.5 mg DAILY RF: 0 aspirin 81 mg Tablet,Delayed Release (Dr/Ec) 81 mg PO QAM RF: 0 lisinopril 20 mg tablet 20 mg PO DAILY RF: 0 Referrals Referrals: Any Gregg CRNP [Primary Care Provider] - The scribe's documentation has been prepared under my direction and personally reviewed by me in its entirety. I confirm that the note above accurately reflects all work, treatment, procedures, and medical decision making performed by me.
[2019-04-16] MEDS ORDERED: SODIUM CHLORIDE 0.9% 500 ML IV SCH (19:30)
[2019-04-16] MEDS ORDERED: dilTIAZem HCL 125 MG in DEXTROSE 5% 100 ML IV SCH (19:30)
[2019-04-16 20:34] LABS: Basophils # (auto) 0.01 K/uL (0-0.2); Basophils % (auto) 0.1 %; Eosinophils # (auto) 0.04 K/uL (0-0.5); Eosinophils % (auto) 0.6 %; Hematocrit (blood only) 41.8 % (37-47); Immature Granulocytes # (auto) 0.02 K/uL (0.00-0.02); Immature Granulocytes % (auto) 0.3 %; Lymphocytes # (auto) 0.86 K/uL (1.2-3.4); Lymphocytes % (auto) 12.6 %; Mean Corpuscular Hgb Conc 33.5 g/dL (32-36); Mean Corpuscular Volume 89.5 fL (80-100); Mean Platelet Volume 9.1 fL (7.4-10.4); Monocytes # (auto) 0.61 K/uL (0.11-0.59); Monocytes % (auto) 8.9 %; Neutrophils # (auto) 5.29 K/uL (1.4-6.5); Neutrophils % (auto) 77.5 %; Platelet Count 147 K/uL (130-400); RDW Coefficient of Variation 14.6 % (11.5-14.5); RDW Standard Deviation 47.3 fL (36.4-46.3); Red Blood Count 4.67 M/uL (4.2-5.4); White Blood Count 6.83 K/uL (4.8-10.8)
[2019-04-16 20:43] LABS: Alanine Aminotransferase 20 U/L (12-78); Albumin Level 3.2 gm/dl (3.4-5.0); Aspartate Aminotransferase 17 U/L (15-37); BUN Creatinine Ratio 17.1 (10-20); Blood Urea Nitrogen 10 mg/dl (7-18); Calcium 9.3 mg/dl (8.5-10.1); Carbon Dioxide 24 mmol/L (21-32); Chloride 106 mmol/L (98-107); Creatinine Clr Calc Pharmacy 71.2 ml/min; Est GFR (African American) 96.7; Est GFR (Non-African American) 83.5; Glucose 133 mg/dl (70-99); Lipase 112 U/L (73-393); Potassium 3.4 mmol/L (3.5-5.1); Sodium 136 mmol/L (136-145)
[2019-04-16 20:48] LABS: Albumin Globulin Ratio 0.7 (0.9-2); Alkaline Phosphatase 117 U/L (45-117); Bilirubin,Total 0.9 mg/dl (0.2-1); Globulin 4.8 gm/dl (2.5-4.0); Troponin I < 0.015 ng/ml (0-0.045)
[2019-04-16 20:52] LABS: Partial Thromboplastin Time 26.2 Seconds (21.0-31.0); Prothrombin Time 10.3 Seconds (9.0-12.0)
--- NOTE | 2019-04-16 20:56 | XRay Report ---
XR chest 1V portable HISTORY: Atypical Chest Pain COMPARISON: Chest 04/15/2015. FINDINGS: No pneumothorax. The heart is mildly enlarged. This has progressed. Interval progression of the diffuse interstitial and vascular thickening consistent with mild pulmonary edema. Surgical clip s within the right axilla. Small bilateral pleural effusions. Old, healed left humeral neck fracture. IMPRESSION: Interval development of mild interstitial pulmonary edema, mild cardiomegaly, and small bilateral ple ural effusions. Electronically signed by: Harsh Mendez M.D. 04/16/2019 8:55 PM
[2019-04-16] MEDS ORDERED: POTASSIUM CHLORIDE 20 MEQ TABCR PO STA (21:19)
[2019-04-16] MEDS ORDERED: POTASSIUM CHLORIDE / WTR 10 MEQ/100 ML PLCT IV ONE (21:20)
--- NOTE | 2019-04-16 23:00 | History & Physical Report ---
Date of Service April 16, 2019 Assessment & Plan (1) Atrial fibrillation with RVR: Atrial fibrillation with RVR/hypertension- The patient will be admitted to telemetry for serial cardiac enzymes, serial EKG's, cardiac rhythm monitoring and a 2-D echocardiogram with Dopplers. Continue apixaban 2.5 mg p.o. every 12 hours, aspirin 81 mg p.o. every morning, lisinopril 20 mg p.o. daily. Give Cardizem 40 mg p.o. now, and 10 mEq K rider x1. Check a magnesium level. Presently on Cardizem drip per the ED, at 8 mg/h with heart rate in the 130s. Changing to Cardizem 30 mg p.o. [address] Consult cardiology Dr. Siegel Present on Admission?: Yes (2) HTN (hypertension): See above Present on Admission?: Yes (3) DVT (deep venous thrombosis): Continue apixaban 2.5 mg p.o. every 12 hours Present on Admission?: Yes (4) Hypothyroidism: Continue levothyroxine sodium 75 mcg p.o. daily Present on Admission?: Yes (5) Hyperlipidemia: Continue simvastatin 20 mg p.o. daily Present on Admission?: Yes (6) Vitamin D insufficiency: Continue supplement cholecalciferol 400 units p.o. daily Present on Admission?: Yes History of Present Illness Chief Complaint: The patient presents to the emergency department with palpitations that began just prior to arrival. Primary Care Provider: BASILIO Chanel The patient is a 88-year-old female with a past medical history including hyperlipidemia, hypertension, hypothyroidism, paroxysmal atrial fibrillation, DVT and vitamin D deficiency, who presents to the emergency department with acute onset of rapid heart rate with subjective palpitations while sitting at rest earlier in the day today. She reports a episode of atrial fibrillation that occurred many years ago, but was much more short-lived and less symptomatic. She had no recent travels or sick exposures. She reports no change in usual dietary habits. She has not had any addition of new diuretics or other medications recently. Allergies Allergy/AdvReac Type Severity Reaction Status Date / Time amoxicillin Allergy Intermediate RASH; Verified 02/20/19 14:57 PURPLE SKIN pneumococcal 7-valent Allergy Intermediate Rash Verified 02/20/19 14:57 conjugate to [From Prevnar] cephalexin Allergy Mild rash Verified 02/20/19 14:57 amiodarone Allergy Unknown RASH Verified 02/20/19 14:57 pneumococcal vaccine Allergy Unknown Verified 02/20/19 14:57 [From Penny 13 (PF)] Home Medications Home Medications Medication Instructions Recorded Confirmed Type aspirin 81 mg PO QAM 06/30/18 04/16/19 History diphenhydramine-acetaminophen 2 tab PO HS 07/01/18 04/16/19 History [Tylenol PM Extra Strength] lisinopril 20 mg PO DAILY 11/28/18 04/16/19 History apixaban 2.5 mg tablet 2.5 mg PO Q12H #180 tab 12/30/18 04/16/19 Rx cholecalciferol (vitamin D3) 400 400 units PO DAILY 02/20/19 04/16/19 History unit capsule cod liver oil 1 cap PO BID 04/16/19 04/16/19 History levothyroxine 75 mcg PO DAILY 04/16/19 04/16/19 History metoprolol succinate 12.5 mg DAILY 04/16/19 04/16/19 History simvastatin 20 mg PO DAILY 04/16/19 04/16/19 History Past Med/Surg History Medical History Anxiety 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 Coronary artery disease "MILD" PER 2012 CARDIAC CATH DVT (deep venous thrombosis) GERD (gastroesophageal reflux disease) CONTROLLED History of atrial fibrillation (Chronic) PAROXYSMAL- ON WARFARIN HTN (hypertension) (Chronic) Hyperlipidemia Osteoporosis Surgical History History of appendectomy History of cardiac cath 2011= NO STENT History of cataract surgery BILATERAL History of colonoscopy History of endoscopic sinus surgery History of herniorrhaphy LEFT INGUINAL HERNIA REPAIR History of hysterectomy MELANIE WITH BSO History of mastectomy RIGHT WITH LYMPH NODE REMOVAL Family History Father Myocardial infarction Other Family history non-contributory Lung cancer Social History Preferred Language: Welsh Communication Ability: Effective Visual Impairment: No Limitations Hearing Ability: Normal 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 Beliefs That Will Affect Care: None Current Living Situation: Family Other Information That Helps Us Care for You: No Feels Safe at Home: Yes Safety Concerns: Feels Safe At This Time Smoking Status: Unknown if ever smoked Hx Alcohol Use: No Hx Substance Use: No Seatbelt Use: always Review of Systems Review of Systems: The patient denies chest pain, shortness of breath, dyspnea on exertion, cough, lower extremity swelling, sore throat, fevers, chills, sweats, weight change, nausea, vomiting, diarrhea , constipation, abdominal pain, pelvic pain, blood in urine or stool, dysuria, urinary frequency or urgency, lightheadedness, dizziness, headache, loss of consciousness, rash, abnormal bruising or bleeding, imbalance, focal or generalized weakness, numbness or tingling in arms or legs, generalized arthralgias or myalgias, back or neck pain, or night sweats. The review of systems is otherwise negative other than for that already noted above, and at least 10 systems have been reviewed. Physical Exam Physical Exam: The patient is awake, alert and oriented 3, well developed and well nourished, normocephalic and atraumatic, lying in bed and in no acute distress. HEENT--PERRL, EOMI, mucous membranes and oropharynx dry. Neck--supple. No JVD. No bruits. Thyroid normal, trachea midline, no adenopathy. Heart--irregularly irregular and tachycardic. No murmurs, rubs or gallops. Lungs--clear bilaterally, no respiratory distress, no accessory muscle use. Abdomen--normal bowel sounds and soft. Nontender. Nondistended. Extremities--no cyanosis or clubbing. No edema. There are good distal pulses b/l. Dermatologic--normal skin turgor, normal color, no abnormal lymph nodes, no rash. Neurologic--cranial nerves II through XII grossly intact. Rheumatologic--normal range of motion. Psychiatric--normal affect. Results & Data Vital Signs (Past 12 Hours) Vital Signs Temp Pulse Pulse Resp BP BP Pulse Ox 04/16/19 22:16 134 H 18 142/92 H 04/16/19 21:31 127 H 20 92 04/16/19 21:00 133 H 20 111/89 92 04/16/19 20:00 112 H 27 H 109/83 92 04/16/19 19:53 115 H 18 171/71 H 91 04/16/19 19:46 117 H 20 171/71 H 91 04/16/19 19:26 99.0 F 146 H 25 H 135/102 H 93 Laboratory Results Laboratory Results WBC 6.83 K/uL (4.8-10.8) 04/16/19 19:49 RBC 4.67 M/uL (4.2-5.4) 04/16/19 19:49 Hgb 14.0 g/dL (12.0-16.0) 04/16/19 19:49 Hct 41.8 % (37-47) 04/16/19 19:49 MCV 89.5 fL (80-100) 04/16/19 19:49 MCH 30.0 pg (25-34) 04/16/19 19:49 MCHC 33.5 g/dL (32-36) 04/16/19 19:49 RDW Std Deviation 47.3 fL (36.4-46.3) H 04/16/19 19:49 RDW Coeff of Sher 14.6 % (11.5-14.5) H 04/16/19 19:49 Plt Count 147 K/uL (130-400) 04/16/19 19:49 MPV 9.1 fL (7.4-10.4) 04/16/19 19:49 Immature Gran % (Auto) 0.3 % 04/16/19 19:49 Neut % (Auto) 77.5 % 04/16/19 19:49 Lymph % (Auto) 12.6 % 04/16/19 19:49 [place] % (Auto) 8.9 % 04/16/19 19:49 Eos % (Auto) 0.6 % 04/16/19 19:49 Baso % (Auto) 0.1 % 04/16/19 19:49 Immature Gran # (Auto) 0.02 K/uL (0.00-0.02) 04/16/19 19:49 Neut # (Auto) 5.29 K/uL (1.4-6.5) 04/16/19 19:49 Lymph # (Auto) 0.86 K/uL (1.2-3.4) L 04/16/19 19:49 [place] # (Auto) 0.61 K/uL (0.11-0.59) H 04/16/19 19:49 Eos # (Auto) 0.04 K/uL (0-0.5) 04/16/19 19:49 Baso # (Auto) 0.01 K/uL (0-0.2) 04/16/19 19:49 PT 10.3 Seconds (9.0-12.0) 04/16/19 19:49 INR 1.0 (0.9-1.1) 04/16/19 19:49 APTT 26.2 Seconds (21.0-31.0) 04/16/19 19:49 PTT Ratio 1.0 04/16/19 19:49 Sodium 136 mmol/L (136-145) 04/16/19 19:50 Potassium 3.4 mmol/L (3.5-5.1) L 04/16/19 19:50 Chloride 106 mmol/L (98-107) 04/16/19 19:50 Carbon Dioxide 24 mmol/L (21-32) 04/16/19 19:50 Anion Gap 6.0 (3-11) 04/16/19 19:50 BUN 10 mg/dl (7-18) 04/16/19 19:50 Creatinine 0.58 mg/dl (0.6-1.2) L 04/16/19 19:50 Est Cr Clr Drug Dosing 71.2 ml/min 04/16/19 19:50 Est GFR ( Amer) 96.7 04/16/19 19:50 Est GFR (Non-Af Amer) 83.5 04/16/19 19:50 BUN/Creatinine Ratio 17.1 (10-20) 04/16/19 19:50 Glucose 133 mg/dl (70-99) H 04/16/19 19:50 Calcium 9.3 mg/dl (8.5-10.1) 04/16/19 19:50 Magnesium 2.0 mg/dl (1.8-2.4) 04/16/19 19:50 Total Bilirubin 0.9 mg/dl (0.2-1) 04/16/19 19:50 AST 17 U/L (15-37) 04/16/19 19:50 ALT 20 U/L (12-78) 04/16/19 19:50 Alkaline Phosphatase 117 U/L (45-117) 04/16/19 19:50 Troponin I < 0.015 ng/ml (0-0.045) 04/16/19 19:50 Total Protein 8.0 gm/dl (6.4-8.2) 04/16/19 19:50 Albumin 3.2 gm/dl (3.4-5.0) L 04/16/19 19:50 Globulin 4.8 gm/dl (2.5-4.0) H 04/16/19 19:50 Albumin/Globulin Ratio 0.7 (0.9-2) L 04/16/19 19:50 Lipase 112 U/L (73-393) 04/16/19 19:50 Diagnostic Findings [place], [place] [phone] XRay Report Patient: FABIANA TATE Date: 04/16/19 MR#: [id number]: Earl RAMIREZ Acct ID:[id number]: Date: 1930[facility] Zip: [place] [address] Age: 88Location: ED Sex: F Room/Bed: Att Phy:Diagnosis: TACHYCARDIA Carly Phy: Any Gregg CRNPService Date: 04/16/19 Fam Phy:Interpreting Phy: Harsh Mendez MD Admit Phy: Ordering Phy: Yoan Lieberman D.O. cc: ~ XR chest 1V portable HISTORY: Atypical Chest Pain COMPARISON: Chest 04/15/2015. FINDINGS: No pneumothorax. The heart is mildly enlarged. This has progressed. Interval progression of the diffuse interstitial and vascular thickening consistent with mild pulmonary edema. Surgical clips within the right axilla. Small bilateral pleural effusions. Old, healed left humeral neck fracture. IMPRESSION: Interval development of mild interstitial pulmonary edema, mild cardiomegaly, and small bilateral pleural effusions. Electronically signed by: Harsh Mendez M.D. 04/16/2019 8:55 PM Dictated: 04/16/192052 Transcribed: 04/16/192052 Code Status & VTE Plan Code Status Full code VTE Prophylaxis Plan VTE Prophylaxis will be ordered: Yes PG Care Time/CCT Total # of Minutes Spent Total Time Spent with Patient: Total time spent is greater than 50% in coordination of care (as documented) at patient's floor/unit and/or counseling patient:
[2019-04-16] MEDS ORDERED: ALUMINUM/MAGNESIUM SUSP 30 ML UDC PO PRN (23:43)
[2019-04-16] MEDS ORDERED: NON-FORMULARY MEDICATION (Cod Liver Oil 1 CAP) PO SCH (23:43)
[2019-04-16] MEDS ORDERED: ONDANSETRON INJ 2 MG/ML 2 ML VIAL IV PRN (23:43)
[2019-04-16] MEDS ORDERED: ACETAMINOPHEN 325 MG TAB PO PRN (23:43)
[2019-04-16] MEDS ORDERED: POLYETHYLENE (MIRALAX) 17 GM PACK PO PRN (23:43)
[2019-04-16] MEDS ORDERED: MAGNESIUM HYDROXIDE SUSP 30 ML UDC PO PRN (23:43)
[2019-04-17] MEDS ORDERED: ALBUMIN 25% 50 ML IV ONE (01:04)
[2019-04-17] MEDS ORDERED: dilTIAZem HCL 30 MG TAB PO ONE (01:05)
[2019-04-17] MEDS: APIXABAN 2.5 MG TAB PO SCH ×2 (01:13→08:11)
[2019-04-17] MEDS ORDERED: LEVOTHYROXINE SODIUM 75 MCG TABLET PO SCH (06:30)
[2019-04-17 07:16] LABS: Eosinophils # (auto) 0.06 K/uL (0-0.5); Eosinophils % (auto) 1.2 %; Hematocrit (blood only) 37.2 % (37-47); Hemoglobin 12.4 g/dL (12.0-16.0); Immature Granulocytes # (auto) 0.01 K/uL (0.00-0.02); Immature Granulocytes % (auto) 0.2 %; Lymphocytes # (auto) 1.02 K/uL (1.2-3.4); Lymphocytes % (auto) 20.5 %; Mean Corpuscular Hgb Conc 33.3 g/dL (32-36); Mean Corpuscular Volume 90.1 fL (80-100); Mean Platelet Volume 9.1 fL (7.4-10.4); Monocytes # (auto) 0.66 K/uL (0.11-0.59); Monocytes % (auto) 13.3 %; Neutrophils # (auto) 3.22 K/uL (1.4-6.5); Neutrophils % (auto) 64.8 %; Platelet Count 157 K/uL (130-400); RDW Coefficient of Variation 14.6 % (11.5-14.5); RDW Standard Deviation 47.8 fL (36.4-46.3); Red Blood Count 4.13 M/uL (4.2-5.4); White Blood Count 4.97 K/uL (4.8-10.8)
[2019-04-17 07:27] LABS: Prothrombin Time 10.7 Seconds (9.0-12.0)
[2019-04-17 08:01] LABS: Albumin Globulin Ratio 0.7 (0.9-2); BUN Creatinine Ratio 14.1 (10-20); Bilirubin,Total 1.2 mg/dl (0.2-1); Calcium 9.8 mg/dl (8.5-10.1); Est GFR (African American) 98.4; Est GFR (Non-African American) 84.9; Globulin 4.1 gm/dl (2.5-4.0); Total Protein 7.1 gm/dl (6.4-8.2)
[2019-04-17] MEDS: dilTIAZem HCL 30 MG TAB PO SCH ×2 (08:11→13:45)
[2019-04-17] MEDS ORDERED: FUROSEMIDE 20 MG in SYRINGE 0 ML IV ONE (08:30)
[2019-04-17] MEDS ORDERED: METOPROLOL SUCC 25MG EXT REL TAB PO SCH ×2 (09:00→21:00)
[2019-04-17] MEDS ORDERED: CHOLECALCIFEROL (VITAMIN D) 400 UNITS TABLET PO SCH (09:00)
[2019-04-17] MEDS ORDERED: lisinopriL 20 MG TAB PO SCH (09:00)
[2019-04-17] MEDS ORDERED: ASPIRIN 81 MG ECTAB PO SCH (09:00)
--- NOTE | 2019-04-17 14:55 | Cardiology Consultation ---
Date of Consultation April 17, 2019 Assessment & Plan (1) Atrial fibrillation with RVR: Patient with spontaneous conversion to sinus rhythm after administration of IV diltiazem. Currently asymptomatic and chronically anticoagulated no signs of acute ischemia Echocardiogram demonstrates preserved LV systolic function although with newly observed evidence of progression and aortic valve disease now moderate to severe (not critical) Recommendations: Given underlying history of valvular heart disease atrial and brief run of ventricular arrhythmia on telemetry would increase beta-ambar specifically Toprol 12.5 mg to twice per day. Would discontinue calcium channel ambar Continue chronic anticoagulation Patient ambulatory in room and stable may be discharged home with planned outpatient cardiology follow-up (2) HTN (hypertension): (3) Obstructive sleep apnea: (4) Calcific aortic stenosis: History of Present Illness Reason for Consultation: Atrial fibrillation with rapid response, paroxysmal Requesting Physician: Dr. Springer Attending Physician: Christiano Springer MD History of Present Illness Patient is an 88-year-old female whose ongoing issues include 1. Paroxysmal atrial fibrillation 2. 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 Hypertension 4. Obstructive sleep apnea 5. Dyslipidemia. Patient presents this admission having developed sudden onset of tachypalpitations consistent with her past atrial arrhythmias occurring while sitting quietly at home. She noted no associated chest pains dizziness or lightheadedness. She had been aware of occasional palpitations recently but no sustained arrhythmias. No fevers chills unexplained infections. No worsening edema. Appetite and weight have been generally stable with only fair appetite per daughter. Notes no recent neurologic complaints denies headache or visual changes. Was given IV diltiazem with subsequent spontaneous conversion after admission to the hospital. Patient currently without complaint. Troponins are negative for injury. Echocardiogram demonstrates preserved LV function though with calcific aortic valve disease more pronounced than on prior studies with moderate to severe aortic stenosis. Allergies Allergy/AdvReac Type Severity Reaction Status Date / Time amoxicillin Allergy Intermediate RASH; Verified 02/20/19 14:57 PURPLE SKIN pneumococcal 7-valent Allergy Intermediate Rash Verified 02/20/19 14:57 conjugate to [From Prevnar] cephalexin Allergy Mild rash Verified 02/20/19 14:57 amiodarone Allergy Unknown RASH Verified 02/20/19 14:57 pneumococcal vaccine Allergy Unknown Verified 02/20/19 14:57 [From Prevnar 13 (PF)] Home Medications Home Medications Medication Instructions Recorded Confirmed Type aspirin 81 mg PO QAM 02/24/19 12/11/19 History diphenhydramine-acetaminophen 2 tab PO HS 07/01/18 04/16/19 History [Tylenol PM Extra Strength] lisinopril 20 mg PO DAILY 11/28/18 04/16/19 History apixaban 2.5 mg tablet 2.5 mg PO Q12H #180 tab 12/30/18 04/16/19 Rx cholecalciferol (vitamin D3) 400 400 units PO DAILY 02/20/19 04/16/19 History unit capsule cod liver oil 1 cap PO BID 04/16/19 04/16/19 History levothyroxine 75 mcg PO DAILY 04/16/19 04/16/19 History simvastatin 20 mg PO DAILY 04/16/19 04/16/19 History metoprolol succinate 12.5 mg PO BID #0 tab 04/17/19 04/16/19 Rx Patient History Medical History Anxiety 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 Coronary artery disease "MILD" PER 2012 CARDIAC CATH DVT (deep venous thrombosis) GERD (gastroesophageal reflux disease) CONTROLLED History of atrial fibrillation (Chronic) PAROXYSMAL- ON WARFARIN HTN (hypertension) (Chronic) Hyperlipidemia Osteoporosis Surgical History History of appendectomy History of cardiac cath 2011= NO STENT History of cataract surgery BILATERAL History of colonoscopy History of endoscopic sinus surgery History of herniorrhaphy LEFT INGUINAL HERNIA REPAIR History of hysterectomy MELANIE WITH BSO History of mastectomy RIGHT WITH LYMPH NODE REMOVAL Family History Father Myocardial infarction Other Family history non-contributory Lung cancer Social History Preferred Language: Syrian Communication Ability: Effective Visual Impairment: No Limitations Hearing Ability: Normal [place] Required: No Beliefs That Will Affect Care: None Current Living Situation: Family Feels Safe at Home: Yes Smoking Status: Unknown if ever smoked Hx Alcohol Use: No Hx Substance Use: No Seatbelt Use: always Review of Systems Review of Systems: All systems reviewed & are unremarkable except as noted in HPI & below Physical Exam Constitutional: + thin; no acute distress Elderly female in no acute distress Eyes: PERRL, conjunctivae normal, anicteric sclerae ENMT: external ear and nose normal, oropharynx normal Neck: trachea midline, no thyromegaly Respiratory: normal respiratory effort, lungs clear to auscultation Cardiovascular: Rate/Rhythm: regular rate and regular rhythm Heart Sounds: normal S1, normal S2 and + murmur (Grade 3/6 systolic murmur heard best at the right upper sternal border no diastolic murmur ); no gallop Palpation: normal PMI Vessels: normal carotid upstroke and radial pulses present; no JVD and no carotid bruit Extremities: + edema (Trace) Gastrointestinal (Abdomen): normal bowel sounds, soft, nontender, no hepatosplenomegaly Musculoskeletal: no cyanosis or clubbing, extremities motor strength 5/5 Skin: no rashes, warm and dry Neurologic: PERRL, EOMI, accommodation nl, no face palsy, no dysarthria Psychiatric: A+Ox3, euthymic affect Results & Data Vital Signs (Past 12 Hours) Vital Signs Temp Pulse Pulse Resp BP Pulse Ox 04/17/19 11:44 37.1 C 80 18 153/84 H 93 04/17/19 07:49 36.4 C L 86 18 171/83 H 93 04/17/19 04:37 37 C 75 20 121/78 92 Medications Administered Laboratory Results - last 24 hr 04/16/19 04/16/19 04/16/19 19:49 19:49 19:50 WBC 6.83 RBC 4.67 Hgb 14.0 Hct 41.8 MCV 89.5 MCH 30.0 MCHC 33.5 RDW Std Deviation 47.3 H RDW Coeff of Sher 14.6 H Plt Count 147 MPV 9.1 Immature Gran % (Auto) 0.3 Neut % (Auto) 77.5 Lymph % (Auto) 12.6 Wilcox % (Auto) 8.9 Eos % (Auto) 0.6 Baso % (Auto) 0.1 Immature Gran # (Auto) 0.02 Neut # (Auto) 5.29 Lymph # (Auto) 0.86 L Wilcox # (Auto) 0.61 H Eos # (Auto) 0.04 Baso # (Auto) 0.01 PT 10.3 INR 1.0 APTT 26.2 PTT Ratio 1.0 Sodium 136 Potassium 3.4 L Chloride 106 Carbon Dioxide 24 Anion Gap 6.0 BUN 10 Creatinine 0.58 L Est Cr Clr Drug Dosing 71.2 Est GFR ( Amer) 96.7 Est GFR (Non-Af Amer) 83.5 BUN/Creatinine Ratio 17.1 Glucose 133 H Calcium 9.3 Magnesium 2.0 Total Bilirubin 0.9 AST 17 ALT 20 Alkaline Phosphatase 117 Troponin I < 0.015 Total Protein 8.0 Albumin 3.2 L Globulin 4.8 H Albumin/Globulin Ratio 0.7 L Lipase 112 04/17/19 04/17/19 04/17/19 06:20 06:20 06:20 WBC 4.97 RBC 4.13 L Hgb 12.4 Hct 37.2 MCV 90.1 MCH 30.0 MCHC 33.3 RDW Std Deviation 47.8 H RDW Coeff of Sher 14.6 H Plt Count 157 MPV 9.1 Immature Gran % (Auto) 0.2 Neut % (Auto) 64.8 Lymph % (Auto) 20.5 Wilcox % (Auto) 13.3 Eos % (Auto) 1.2 Baso % (Auto) 0.0 Immature Gran # (Auto) 0.01 Neut # (Auto) 3.22 Lymph # (Auto) 1.02 L Wilcox # (Auto) 0.66 H Eos # (Auto) 0.06 Baso # (Auto) 0.00 PT 10.7 INR 1.0 APTT 27.0 PTT Ratio 1.0 Sodium 138 Potassium 4.0 D Chloride 109 H Carbon Dioxide 24 Anion Gap 5.0 BUN 8 Creatinine 0.55 L Est Cr Clr Drug Dosing 74.0 Est GFR ( Amer) 98.4 Est GFR (Non-Af Amer) 84.9 BUN/Creatinine Ratio 14.1 Glucose 104 H Calcium 9.8 Magnesium Total Bilirubin 1.2 H AST 13 L ALT 16 Alkaline Phosphatase 98 Troponin I Total Protein 7.1 Albumin 3.0 L Globulin 4.1 H Albumin/Globulin Ratio 0.7 L Lipase 04/17/19 06:20 WBC RBC Hgb Hct MCV MCH MCHC RDW Std Deviation RDW Coeff of Sher Plt Count MPV Immature Gran % (Auto) Neut % (Auto) Lymph % (Auto) Wilcox % (Auto) Eos % (Auto) Baso % (Auto) Immature Gran # (Auto) Neut # (Auto) Lymph # (Auto) Wilcox # (Auto) Eos # (Auto) Baso # (Auto) PT INR APTT PTT Ratio Sodium Potassium Chloride Carbon Dioxide Anion Gap BUN Creatinine Est Cr Clr Drug Dosing Est GFR ( Amer) Est GFR (Non-Af Amer) BUN/Creatinine Ratio Glucose Calcium Magnesium Total Bilirubin AST ALT Alkaline Phosphatase Troponin I 0.016 Total Protein Albumin Globulin Albumin/Globulin Ratio Lipase
--- NOTE | 2019-04-17 15:41 | Discharge Summary ---
Date of Service April 17, 2019 Admission HPI Per Admitting Provider The patient is a 88-year-old female with a past medical history including hyperlipidemia, hypertension, hypothyroidism, paroxysmal atrial fibrillation, DVT and vitamin D deficiency, who presents to the emergency department with acute onset of rapid heart rate with subjective palpitations while sitting at rest earlier in the day today. She reports a episode of atrial fibrillation that occurred many years ago, but was much more short-lived and less symptomatic. She had no recent travels or sick exposures. She reports no change in usual dietary habits. She has not had any addition of new diuretics or other medications recently. Discharge Data Allergies Allergy/AdvReac Type Severity Reaction Status Date / Time amoxicillin Allergy Intermediate RASH; Verified 02/20/19 14:57 PURPLE SKIN pneumococcal 7-valent Allergy Intermediate Rash Verified 02/20/19 14:57 conjugate to [From Prevnar] cephalexin Allergy Mild rash Verified 02/20/19 14:57 amiodarone Allergy Unknown RASH Verified 02/20/19 14:57 pneumococcal vaccine Allergy Unknown Verified 02/20/19 14:57 [From Prevnar 13 (PF)] Consultations 04/16/19 21:10 ED Decision to Admit Stat 04/16/19 23:43 Consult Cardiology Routine Consult Case Management - Discharge Planning Routine Hospital Course (1) Atrial fibrillation with RVR: Atrial fibrillation with RVR/hypertension- The patient will be admitted to telemetry for serial cardiac enzymes, serial EKG's, cardiac rhythm monitoring and a 2-D echocardiogram with Dopplers. Continue apixaban 2.5 mg p.o. every 12 hours, aspirin 81 mg p.o. every morning, lisinopril 20 mg p.o. daily. Give Cardizem 40 mg p.o. now, and 10 mEq K rider x1. Check a magnesium level. Presently on Cardizem drip per the ED, at 8 mg/h with heart rate in the 130s. Changing to Cardizem 30 mg p.o. [address] cardi[address] Siegel (2) HTN (hypertension): See above (3) DVT (deep venous thrombosis): Continue apixaban 2.5 mg p.o. every 12 hours (4) Hypothyroidism: Continue levothyroxine sodium 75 mcg p.o. daily (5) Hyperlipidemia: Continue simvastatin 20 mg p.o. daily (6) Vitamin D insufficiency: Continue supplement cholecalciferol 400 units p.o. 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 *If you need to change this appointment, call the office at [phone].) Beto Siegel DO [Physician] - (Please, follow up at Dr. Siegel's office. *A nurse from his office will call you with the appointment details. If you have any questions, call the office at [phone].) Diet: Heart Healthy Addtl Attending Provider Instructions: You were admitted to [facility] from April 16 to 2018 due to palpitations. You were diagnosed with atrial fibrillation with rapid ventricular rate which lead to some fluid on your lungs (temporary heart failure). You were treated with diltiazem and converted back to a normal sinus rhythm overnight. You were reviewed by cardiology and recommended to increase your metoprolol to twice a day. No other medication changes needed. Please follow up with cardiology in clinic (appointment to be arranged, please call if you have not heard about an appointment in 5 working days). Pending Studies at Discharge: No Stand-Alone Forms: My [facility], Smoking Cessation Medications and DC Order Prescriptions: Continued Eliquis 2.5 mg tablet 2.5 mg PO Q12H Qty: 180 RF: 3 cholecalciferol (vitamin D3) 400 unit capsule 400 units PO DAILY RF: 0 diphenhydramine-acetaminophen [Tylenol PM Extra Strength] 25-500 mg Tablet 2 tab PO HS RF: 0 cod liver oil 1 cap PO BID RF: 0 levothyroxine 75 mcg tablet 75 mcg PO DAILY RF: 0 simvastatin 20 mg tablet 20 mg PO DAILY RF: 0 aspirin 81 mg Tablet,Delayed Release (Dr/Ec) 81 mg PO QAM RF: 0 lisinopril 20 mg tablet 20 mg PO DAILY RF: 0 Changed metoprolol succinate 25 mg tablet extended release 24 hr 12.5 mg PO BID Qty: 0 RF: 0 Discharge Orders: Discharge Order (Routine); Ordered 04/17/19 Ordered By: Christiano Springer Admission Data Admit Date/Time: 04/16/19 22:13 Attending Provider: Christiano Springer Admit Provider: Stanley Lindquist Primary Care Provider: Any Gregg Other Providers: Stanley Lindquist ; Beto Siegel
== END 2019-04-17 16:30 | disposition home or self-care (01) | DRG 310 ==
LOC: ED 19:12 → SUATTDRO 22:13 → 2S 22:13